=== PATIENT | female | born 1955 | race Caucasian/White ===

== ENCOUNTER 2017-02-27 14:58 | Observation (INO) | payer BC ==
[2017-02-27] MEDS ORDERED: Albuterol/Ipratropium 3.0-0.5 MG/3 ML Neb Soln NEB ONE ×2 (15:16→16:20)
[2017-02-27] MEDS ORDERED: Sodium Chloride 0.9% 1,000 ML IV ONE (15:36)
[2017-02-27] MEDS ORDERED: methylPREDNISolone Sodium Succinate 125 MG/2 ML SDV IVPUSH ONE (15:37)
--- NOTE | 2017-02-27 16:27 | CR ---
EXAMINATION: Two-view chest (PA and Lateral views). HISTORY: Rule out pneumonia. FINDINGS: The trachea is midline. The cardiomediastinal silhouette is within normal limits. There is mild left basilar atelectasis and/or infiltrate. There is mild hyperinflation. Osseous structures appear unremarkable. IMPRESSION: Mild left basilar atelectasis and/or infiltrate.
--- NOTE | 2017-02-27 16:45 | EDM.PDOC ---
ED HISTORY OF PRESENT ILLNESS - General Chief Complaint: Respiratory Problem Stated Complaint: SHORTNESS OF BREATH Time Seen by Provider: 02/27/17 15:15 Source of Information: Reports: Patient, Family History Limitations: Reports: No limitations - History of Present Illness INITIAL COMMENTS - FREE TEXT/NARRATIVE: History of present illness: [61-year-old female presenting with acute onset of difficulty breathing. Patient indicates that she's had a cough that she couldn't resolve and subsequently took some codeine cough since she had at home. Patient as she has an allergy to codeine but felt a little bit would not matter] Review of systems: As per history of present illness and below otherwise all systems reviewed and negative. Past medical history: As per history of present illness and as reviewed below otherwise noncontributory. Surgical history: As per history of present illness and as reviewed below otherwise noncontributory. Social history: No reported history of drug or alcohol abuse. Family history: As per history of present illness and as reviewed below otherwise noncontributory. Physical exam: HEENT: Atraumatic, normocephalic, pupils reactive, negative for conjunctival pallor or scleral icterus, mucous membranes moist, throat clear, neck supple, nontender, trachea midline. Lungs: Bilateral lungs with significant decreased airflow noted O2 sats in the low 90s on room-air but with any talking or coughing drop below 90%, chest nontender. Heart: S1S2, regular, negative for clicks, rubs, or JVD. Abdomen: Soft, nondistended, nontender. Negative for masses or hepatosplenomegaly. Negative for costovertebral tenderness. Pelvis: Stable nontender. Genitourinary: Deferred. Rectal: Deferred. Extremities: Atraumatic, negative for cords or calf pain. Neurovascular unremarkable. Neuro: Awake, alert, oriented. Cranial nerves II through XII unremarkable. Cerebellum unremarkable. Motor and sensory unremarkable throughout. Exam nonfocal. After numerous continuous Med-Neb's patients air way appeared clear with good air movement yet her saturations continued to drop below 90 percentile 2 L of oxygen placed via nasal cannula with O2 sats reaching 94-96%. Patient is very nervous and has a protracted history of "numerous allergies" patient admitted she wasn't really clear about what has happened but has very stories about numerous bad outcomes from any medical intervention. Patient initially did not want to be admitted felt that she was the "worst patient in the hospital ever" but he ignores that she did need O2 support to maintain her saturations above 90% and was willing to be admitted. Diagnostics: [Chest x-ray] Therapeutics: [Continuous Med-Neb's IV Solu-Medrol] Impression: [Infiltrate versus atelectasis] Plan: [Mid to office] Definitive disposition and diagnosis as appropriate pending reevaluation and review of above. - Related Data Allergies/ADRs: Allergies Allergy/AdvReac Type Severity Reaction Status Date / Time codeine Allergy Nausea and Verified 02/27/17 15:09 Vomiting epinephrine Allergy Other Verified 02/27/17 15:09 hydrocortisone Allergy Cannot Verified 02/27/17 15:09 [From Cortizone-10] Remember levofloxacin [From Levaquin] Allergy Leg Cramps Verified 02/27/17 15:09 metoprolol Allergy Chest Pain Verified 02/27/17 15:09 morphine Allergy Nausea Verified 02/27/17 15:09 Penicillins Allergy Anaphylactic Verified 02/27/17 15:09 Shock sulfamethoxazole Allergy Cannot Verified 02/27/17 15:09 Remember trimethoprim [From Bactrim] Allergy Cannot Verified 02/27/17 15:09 Remember metal Allergy Rash Uncoded 08/24/15 13:37 Home Meds: Home Meds Losartan/Hydrochlorothiazide [Losartan-HCTZ 100-25 MG] 1 tab PO DAILY 08/24/15 [ History] Past Medical History Cardiovascular History: Reports: Hypertension Musculoskeletal History: Reports: Gout, Other (see below) Other Musculoskeletal History: chronic pain - Infectious Disease History Infectious Disease History: Reports: Chicken pox, Measles, Mumps Social & Family History - Family History Family Medical History: Noncontributory - Tobacco Use Smoking Status *Q: Never Smoker Second Hand Smoke Exposure: Yes - Recreational Drug Use Recreational Drug Use: No ED ROS GENERAL - Review of Systems Review Of Systems: See Below (History of present illness) ED EXAM, GENERAL - Physical Exam Exam: See Below (History of present illness) Course - Vital Signs Last Recorded V/S: Last Vital Signs Temp 37.1 C 02/27/17 17:23 Pulse 97 02/27/17 17:23 Resp 18 02/27/17 17:23 BP 139/78 02/27/17 17:23 Pulse Ox 98 02/27/17 17:23 - Orders/Labs/Meds Orders: Active Orders 24 hr Category Date Time Status RT Aerosol Therapy [RC] ASDIRECTED Care 02/27/17 15:16 Active RT Aerosol Therapy [RC] ASDIRECTED Care 02/27/17 16:20 Active CMP [COMPREHENSIVE METABOLIC PN,CMP] [CHEM] Stat Lab 02/27/17 17:11 Received Sodium Chloride 0.9% [Normal Saline] 1,000 ml Med 02/27/17 15:36 Active IV STAT Medication Orders Sodium Chloride (Normal Saline) 1,000 mls @ 100 mls/hr IV STAT ONE Stop: 02/28/17 01:35 Last Admin: 02/27/17 15:52 Dose: 100 mls/hr Meds: Medications Generic Name Dose Route Start Last Admin Trade Name Freq PRN Reason Stop Dose Admin Sodium Chloride 1,000 mls @ 100 mls/hr 02/27/17 15:36 02/27/17 15:52 Normal Saline IV 02/28/17 01:35 100 mls/hr STAT ONE Administration Discontinued Medications Generic Name Dose Route Start Last Admin Trade Name Freq PRN Reason Stop Dose Admin Albuterol/Ipratropium 3 ml 02/27/17 15:16 02/27/17 15:26 Duoneb 3.0-0.5 Mg/3 Ml NEB 02/27/17 15:17 3 ml ONETIME ONE Administration Albuterol/Ipratropium 3 ml 02/27/17 16:20 02/27/17 16:29 Duoneb 3.0-0.5 Mg/3 Ml NEB 02/27/17 16:21 3 ml ONETIME ONE Administration Methylprednisolone Sodium Succinate 125 mg 02/27/17 15:37 02/27/17 15:52 Solu-Medrol IVPUSH 02/27/17 15:38 125 mg ONETIME ONE Administration Departure - Departure Time of Disposition: 17:32 Disposition: Refer to Observation Condition: good Clinical Impression: Dyspnea Qualifiers: Dyspnea type: unspecified Qualified Code(s): R06.00 - Dyspnea, unspecified - My Orders Last 24 Hours: My Active Orders 02/27/17 15:16 RT Aerosol Therapy [RC] ASDIRECTED 02/27/17 15:36 Sodium Chloride 0.9% [Normal Saline] 1,000 ml IV STAT 02/27/17 16:20 RT Aerosol Therapy [RC] ASDIRECTED 02/27/17 17:11 CMP [COMPREHENSIVE METABOLIC PN,CMP] [CHEM] Stat - Assessment/Plan Last 24 Hours: My Active Orders 02/27/17 15:16 RT Aerosol Therapy [RC] ASDIRECTED 02/27/17 15:36 Sodium Chloride 0.9% [Normal Saline] 1,000 ml IV STAT 02/27/17 16:20 RT Aerosol Therapy [RC] ASDIRECTED 02/27/17 17:11 CMP [COMPREHENSIVE METABOLIC PN,CMP] [CHEM] Stat
[2017-02-27] MEDS ORDERED: Ondansetron 4 MG Tab.DIS PO PRN (17:22)
[2017-02-27] MEDS ORDERED: Acetaminophen 325 MG Tab PO PRN (17:22)
--- NOTE | 2017-02-27 17:46 | PCM.HP ---
H&P History of Present Illness - General Date of Service: 02/27/17 Admit Problem/Dx: Admission Diagnosis/Problem Admission Diagnosis/Problem Dyspnea Source of Information: Patient History Limitations: Reports: No limitations - History of Present Illness Initial Comments - Free Text/Narative: 61 year old female that is being admitted with shortness of breath. Patient developed a cough 1 week ago and today the cough became worse and she experienced worsening shortness of breath. She has not sought treatment until presenting to the ER today. Her cough is non-productive. She does not smoke but her has smoked in the house for the past 25 years. She has no diagnosis of asthma or COPD. She does not require O2 at home. She has been tried on inhalers in the past but states that she is "scared to use them" and of the side effects that may come with their use. She also endorses weakness, decreased appetite but denies any N/V/C/D or abdominal pain. She has had sinus congestion over the past week but attributes this to allergies. She does not take anything for her allergies. She denies any peripheral edema. Her son, who is with her today, notes that she has a difficult time breathing when lying flat. Patient denies this. Patient does not have a cardiac history. She does take Losartan-HCTZ for blood pressure control. She did not receive a flu shot this year. ER COURSE: Patient received Solu-medrol IV and duonebs treatment. Her O2 was mid 80's on RA. She is currently on supplemental O2 via NC. She has been afebrile in the ER. She has been intermittently tachycardic and tachypneinc in the ER. CXR shows mild left basilar atelectasis/infiltrate - Related Data Allergies/Adverse Reactions: Allergies Allergy/AdvReac Type Severity Reaction Status Date / Time codeine Allergy Nausea and Verified 02/27/17 15:09 Vomiting epinephrine Allergy Other Verified 02/27/17 15:09 hydrocortisone Allergy Cannot Verified 02/27/17 15:09 [From Cortizone-10] Remember levofloxacin [From Levaquin] Allergy Leg Cramps Verified 02/27/17 15:09 metoprolol Allergy Chest Pain Verified 02/27/17 15:09 morphine Allergy Nausea Verified 02/27/17 15:09 Penicillins Allergy Anaphylactic Verified 02/27/17 15:09 Shock sulfamethoxazole Allergy Cannot Verified 02/27/17 15:09 Remember trimethoprim [From Bactrim] Allergy Cannot Verified 02/27/17 15:09 Remember metal Allergy Rash Uncoded 08/24/15 13:37 Home Medications: Home Meds Losartan/Hydrochlorothiazide [Losartan-HCTZ 100-25 MG] 1 tab PO DAILY 08/24/15 [ History] Past Medical History Cardiovascular History: Reports: Hypertension Musculoskeletal History: Reports: Gout, Other (see below) Other Musculoskeletal History: chronic pain - Infectious Disease History Infectious Disease History: Reports: Chicken pox, Measles, Mumps Social & Family History - Family History Family Medical History: Noncontributory - Tobacco Use Smoking Status *Q: Never Smoker Second Hand Smoke Exposure: Yes - Recreational Drug Use Recreational Drug Use: No H&P Review of Systems - Review of Systems: Review Of Systems: See Below General: Reports: weakness, fatigue, decreased appetite HEENT: Reports: headaches, sinus congestion Pulmonary: Reports: Shortness of Breath, Cough. Denies: Hemoptysis Cardiovascular: Reports: dyspnea on exertion, orthopnea Gastrointestinal: Reports: Decreased appetite Genitourinary: Reports: no symptoms Musculoskeletal: Reports: no symptoms Skin: Reports: no symptoms Psychiatric: Reports: no symptoms Neurological: Reports: No Symptoms Hematologic/Lymphatic: Reports: no symptoms Immunologic: Reports: no symptoms Exam - Exam Exam: See Below - Vital Signs Vital Signs: Last Vital Signs Temp 98.8 F 02/27/17 17:23 Pulse 97 02/27/17 17:23 Resp 18 02/27/17 17:23 BP 139/78 02/27/17 17:23 Pulse Ox 98 02/27/17 17:23 Weight: 260 lb - Exam General: alert, oriented, cooperative HEENT: Hearing intact, Mucosa moist & pink, Nares patent, Normal nasal septum, TMs clear, Other (white exudate noted on the left tonsil) Neck: supple, trachea midline, 2 Lungs: Clear to auscultation, Normal respiratory effort, Decreased breath sounds (diffuse and bilateral) Cardiovascular: regular rate, regular rhythm Abdomen: normal bowel sounds, soft Extremities: normal inspection. No: calf tenderness, edema Peripheral Pulses: 2+: radial (L), radial (R) Skin: warm, dry, intact Neuro Extensive - Mental Status: alert, oriented x3, normal mood/affect, normal cognition Psychiatric: alert, anxious - Patient Data Lab Results last 24 hrs: Laboratory Results - last 24 hr 02/27/17 Range/Units 17:11 WBC 3.08 L (4.0-11.0) K/uL RBC 4.35 (4.30-5.90) M/uL Hgb 12.7 (12.0-16.0) g/dL Hct 38.5 (36.0-46.0) % MCV 88.5 (80.0-98.0) fL MCH 29.2 (27.0-32.0) pg MCHC 33.0 (31.0-37.0) g/dL RDW Std Deviation 46.0 (28.0-62.0) fl RDW Coeff of Iesha 14 (11.0-15.0) % Plt Count 162 (150-400) K/uL MPV 9.60 (7.40-12.00) fL Neut % (Auto) 67.3 (48.0-80.0) % Lymph % (Auto) 22.7 (16.0-40.0) % [place] % (Auto) 9.7 (0.0-15.0) % Eos % (Auto) 0.0 (0.0-7.0) % Baso % (Auto) 0.3 (0.0-1.5) % Neut # (Auto) 2.1 (1.4-5.7) K/uL Lymph # (Auto) 0.7 (0.6-2.4) K/uL [place] # (Auto) 0.3 (0.0-0.8) K/uL Eos # (Auto) 0.0 (0.0-0.7) K/uL Baso # (Auto) 0.0 (0.0-0.1) K/uL Nucleated RBC % 0.0 /100WBC Nucleated RBCs # 0 K/uL Result Diagrams: 02/27/17 17:11 02/27/17 17:11 *Q Meaningful Use (ADM) - VTE *Q VTE Criteria *Q: - Stroke *Q Stroke Criteria *Q: - AMI *Q AMI Criteria *Q: - Problem List (1) Dyspnea SNOMED Code(s): 942077367 ICD Code: R06.00 - DYSPNEA, UNSPECIFIED Status: Acute Current Visit: Yes Qualifiers: Dyspnea type: unspecified Qualified Code(s): R06.00 - Dyspnea, unspecified Problem List Initiated/Reviewed/Updated: Yes Orders Last 24hrs: Active Orders 24 hr Category Date Time Status Patient Status [ADT] Routine ADT 02/27/17 17:24 Ordered Patient Status [ADT] Stat ADT 02/27/17 17:31 Active Antiembolic Devices [RC] PER UNIT ROUTINE Care 02/27/17 17:28 Ordered Cardiac Monitoring [RC] INTERMITTENT Care 02/27/17 17:26 Ordered Height and Weight [RC] DAILY Care 02/27/17 17:22 Ordered Intake and Output [RC] QSHIFT Care 02/27/17 17:26 Ordered Notify Provider Vital Signs [RC] ASDIRECTED Care 02/27/17 17:26 Ordered Oxygen Therapy [RC] PRN Care 02/27/17 17:24 Ordered Pulse Oximetry [RC] PRN Care 02/27/17 17:26 Ordered RT Aerosol Therapy [RC] ASDIRECTED Care 02/27/17 17:28 Ordered Up With Assistance [RC] ASDIRECTED Care 02/27/17 17:22 Ordered VTE/DVT Education [RC] PER UNIT ROUTINE Care 02/27/17 17:24 Ordered Vital Signs [RC] Q4H Care 02/27/17 17:24 Ordered PT Evaluation and Treatment [CONS] Routine Cons 02/27/17 17:22 Ordered Regular Diet [DIET] Diet 02/27/17 Breakfast Ordered BASIC METABOLIC PANEL,BMP [CHEM] AM Lab 02/28/17 05:11 Ordered CBC WITH AUTO DIFF [HEME] AM Lab 02/28/17 05:11 Ordered Acetaminophen [Tylenol] Med 02/27/17 17:22 Ordered 650 mg PO Q4H PRN Albuterol/Ipratropium [DuoNeb 3.0-0.5 MG/3 ML] Med 02/27/17 18:00 Ordered 3 ml NEB Q4HRRT Enoxaparin [Lovenox] Med 02/27/17 17:30 Ordered 40 mg SUBCUT DAILY Losartan/Hydrochlorothiazide [Losartan-HCTZ 100-25 MG] Med 02/28/17 09:00 Ordered 1 tab PO DAILY Ondansetron [Zofran ODT] Med 02/27/17 17:22 Ordered 4 mg PO Q4H PRN methylPREDNISolone Sod Succ [Solu-MEDROL] Med 02/27/17 21:00 Ordered 125 mg IVPUSH Q6H Sequential Compression Device [OM.PC] Per Unit Routine Oth 02/27/17 17:26 Ordered Resuscitation Status Routine Resus Stat 02/27/17 17:22 Ordered Medication Orders Acetaminophen (Tylenol) 650 mg PO Q4H PRN PRN Reason: Pain (Mild 1-3)/fever Albuterol/Ipratropium (Duoneb 3.0-0.5 Mg/3 Ml) 3 ml NEB Q4HRRT [facility] Enoxaparin Sodium (Lovenox) 40 mg SUBCUT DAILY [facility] HCTZ/Losartan Potassium (Hyzaar 50-12.5 Mg) 2 tab PO DAILY [facility] Sodium Chloride (Normal Saline) 1,000 mls @ 100 mls/hr IV STAT ONE Stop: 02/28/17 01:35 Last Admin: 02/27/17 15:52 Dose: 100 mls/hr Methylprednisolone Sodium Succinate (Solu-Medrol) 125 mg IVPUSH Q6H [facility] Ondansetron HCl (Zofran Odt) 4 mg PO Q4H PRN PRN Reason: nausea, able to take PO Assessment/Plan Comment:: 61 year old female admitted with dyspnea 1. Dyspnea: -pneumonia vs asthma exacerbation vs COPD exacerbation. -CXR shows mild left basilar atelectasis/infiltrate. WBC is low at 3 and differential is normal. -Will start solumedrol 125mg IV q6hrs, duonebs BETHANY q4hrs -start Rocephin 1gm IV daily and Azithromycin 500mg IV daily. -Supplemental O2 as needed -will swab for flu 2. Weakness: -PT ordered DVT Prophylaxis: Lovenox 40mg daily, SCD's
[2017-02-27 17:53] LABS: CHLORIDE,CL 94 mmol/L (98-110); SODIUM,NA 131 mmol/L (136-146)
[2017-02-27] MEDS ORDERED: Azithromycin 500 MG in Sodium Chloride 0.9% 250 ML IV SCH (18:00)
[2017-02-27] MEDS: Albuterol/Ipratropium 3.0-0.5 MG/3 ML Neb Soln NEB SCH ×2 (18:35→21:15)
[2017-02-27] MEDS: Enoxaparin 40 MG/0.4 ML Syringe SUBCUT SCH ×2 (18:46→18:56)
[2017-02-27] MEDS ORDERED: cefTRIAXone 1 GM in Premix Bag 1 BAG IV SCH (19:00)
[2017-02-27] MEDS ORDERED: Potassium Chloride 20 MEQ Tab.ER PO ONE (19:56)
[2017-02-27] MEDS ORDERED: Sodium Chloride 0.9% with KCl 1,000 ML IV SCH (20:15)
[2017-02-27] MEDS: Oseltamivir 75 MG Cap PO SCH (20:36)
[2017-02-27] MEDS: methylPREDNISolone Sodium Succinate 125 MG/2 ML SDV IVPUSH SCH (20:38)
[2017-02-28] MEDS: Albuterol/Ipratropium 3.0-0.5 MG/3 ML Neb Soln NEB SCH ×3 (02:11→10:08)
[2017-02-28] MEDS: methylPREDNISolone Sodium Succinate 125 MG/2 ML SDV IVPUSH SCH ×2 (02:13→08:17)
[2017-02-28 05:26] LABS: CHLORIDE,CL 94 mmol/L (98-110); SODIUM,NA 131 mmol/L (136-146)
[2017-02-28 05:32] VITALS: BP 122/56
[2017-02-28] MEDS: Oseltamivir 75 MG Cap PO SCH (08:19)
[2017-02-28] MEDS ORDERED: Hydrochlorothiazide/Losartan 12.5-50 mg Tab PO SCH (09:00)
[2017-02-28] MEDS: Enoxaparin 40 MG/0.4 ML Syringe SUBCUT SCH (10:48)
--- NOTE | 2017-03-03 15:56 | PCM.DCSUM1 ---
Discharge Summary - Hospital Course Free Text/Narrative:: Admission diagnosis: 1. shortness of breath Discharge diagnosis: 1. COPD exacerbation 2. Left sided pneumonia 3. Influenza B positive 61 year old female admitted with worsening shortness of breath. CXR showed a mild left basilar atelectasis/infiltrate. She was requiring 2L Nasal cannula to maintain O2 saturation >90%. She was started IV antibiotics (Rocephin, Azithromycin) for pneumonia. She was also started on solumedrol IV and scheduled duonebs for a possible COPD exacerbation. She was swabbed for flu and was influenza B positive. She was started on Tamiflu. With the various treatments listed above, the patients respiratory status improved and she was not requiring supplemental O2 at the time of discharge. WBC was low during admission. She was afebrile, tolerating oral intake and voiding appropriately at time of discharge. - Discharge Data Discharge Date: 02/28/17 Discharge Disposition: Home, Self-Care 01 Condition: Good - Discharge Diagnosis/Problem(s) (1) Dyspnea SNOMED Code(s): 736316716 ICD Code: R06.00 - DYSPNEA, UNSPECIFIED Status: Acute Qualifiers: Dyspnea type: unspecified Qualified Code(s): R06.00 - Dyspnea, unspecified (2) Influenza SNOMED Code(s): 8482209 ICD Code: J11.1 - FLU DUE TO UNIDENTIFIED INFLUENZA VIRUS W OTH RESP MANIFEST Status: Acute - Patient Instructions Diet: Usual Diet as Tolerated Activity: As Tolerated Driving: May Drive Today Showering/Bathing: May Shower Notify Provider of: Fever, Increased Pain, Nausea and/or Vomiting - Discharge Plan Prescriptions/Med Rec: Albuterol [IJD: Ventolin HFA] 1 puff INH .TWICE DAILY #18 gm Azithromycin [IJD: Azithromycin] 250 mg PO ASDIRECTED #6 tab Oseltamivir Phosphate [IJD: Tamiflu] 75 mg PO BID #8 capsule Prednisone [IJD: Prednisone] 10 mg PO ASDIRECTED #28 tab Home Medications: Home Meds Losartan/Hydrochlorothiazide [Losartan-HCTZ 100-25 MG] 1 tab PO DAILY 08/24/15 [ History] Albuterol [IJD: Ventolin HFA] 1 puff INH .TWICE DAILY #18 gm 02/28/17 [Rx] Azithromycin [IJD: Azithromycin] 250 mg PO ASDIRECTED #6 tab 02/28/17 [Rx] Oseltamivir Phosphate [IJD: Tamiflu] 75 mg PO BID #8 capsule 02/28/17 [Rx] Prednisone [IJD: Prednisone] 10 mg PO ASDIRECTED #28 tab 02/28/17 [Rx] Patient Handouts: Shortness of Breath, [id number], Influenza, Adult, Easy-to- Read, Albuterol inhalation aerosol, Oseltamivir capsules, Azithromycin tablets, Prednisone tablets Referrals: Jerrod Solares MD [Primary Care Provider] - 03/07/17 2:15 pm - Discharge Summary/Plan Comment DC Time >30 min.: No Discharge Summary/Plan Comment: Admission diagnosis: 1. shortness of breath Discharge diagnosis: 1. COPD exacerbation 2. Left sided pneumonia 3. Influenza B positive 61 year old female admitted with worsening shortness of breath. CXR showed a mild left basilar atelectasis/infiltrate. She was requiring 2L Nasal cannula to maintain O2 saturation >90%. She was started IV antibiotics (Rocephin, Azithromycin) for pneumonia. She was also started on solumedrol IV and scheduled duonebs for a possible COPD exacerbation. She was swabbed for flu and was influenza B positive. She was started on Tamiflu. With the various treatments listed above, the patients respiratory status improved and she was not requiring supplemental O2 at the time of discharge. WBC was low during admission. She was afebrile, tolerating oral intake and voiding appropriately at time of discharge. Discharge plan: 1. Prescribed Prednisone taper. Patient states that she would not use prescription but it was prescribed anyway. 2. Prescribed albuterol inhaler. 3. Prescribed a Z-pack for pneumonia 4. Prescribed Tamiflu 75mg BID for 4 days. 5. Will f/u with Dr. Jerrod Solares on 03/07/17. - Patient Data Vitals - Most Recent: Last Vital Signs Temp 97.7 F 02/28/17 08:15 Pulse 87 02/28/17 08:15 Resp 22 H 02/28/17 08:15 BP 122/56 L 02/28/17 05:00 Pulse Ox 92 L 02/28/17 08:15 Weight - Most Recent: 260 lb Med Orders - Current: Current Medications Discontinued Medications Acetaminophen (Tylenol) 650 mg PO Q4H PRN PRN Reason: Pain (Mild 1-3)/fever Albuterol/Ipratropium (Duoneb 3.0-0.5 Mg/3 Ml) 3 ml NEB ONETIME ONE Stop: 02/27/17 15:17 Last Admin: 02/27/17 15:26 Dose: 3 ml Albuterol/Ipratropium (Duoneb 3.0-0.5 Mg/3 Ml) 3 ml NEB ONETIME ONE Stop: 02/27/17 16:21 Last Admin: 02/27/17 16:29 Dose: 3 ml Albuterol/Ipratropium (Duoneb 3.0-0.5 Mg/3 Ml) 3 ml NEB Q4HRRT [facility] Last Admin: 02/28/17 10:08 Dose: Not Given Enoxaparin Sodium (Lovenox) 40 mg SUBCUT DAILY [facility] Last Admin: 02/28/17 10:48 Dose: Not Given HCTZ/Losartan Potassium (Hyzaar 50-12.5 Mg) 2 tab PO DAILY [facility] Last Admin: 02/28/17 08:17 Dose: 2 tab Sodium Chloride (Normal Saline) 1,000 mls @ 100 mls/hr IV STAT ONE Stop: 02/28/17 01:35 Last Admin: 02/27/17 15:52 Dose: 100 mls/hr Azithromycin 500 mg/ Sodium (Chloride) 250 mls @ 250 mls/hr IV Q24H [facility] Last Infusion: 02/27/17 20:06 Dose: Infused Ceftriaxone Sodium/Dextrose 1 (gm/ Premix) 50 mls @ 100 mls/hr IV Q24H [facility] Last Infusion: 02/27/17 20:30 Dose: Infused Potassium Chloride/Sodium Chloride (Normal Saline With 40 Meq Kcl) 1,000 mls @ 125 mls/hr IV ASDIRECTED [facility] Stop: 02/28/17 04:14 Last Infusion: 02/28/17 05:50 Dose: Infused Methylprednisolone Sodium Succinate (Solu-Medrol) 125 mg IVPUSH ONETIME ONE Stop: 02/27/17 15:38 Last Admin: 02/27/17 15:52 Dose: 125 mg Methylprednisolone Sodium Succinate (Solu-Medrol) 125 mg IVPUSH Q6H [facility] Last Admin: 02/28/17 08:17 Dose: 125 mg Ondansetron HCl (Zofran Odt) 4 mg PO Q4H PRN PRN Reason: nausea, able to take PO Last Admin: 02/28/17 02:11 Dose: 4 mg Oseltamivir Phosphate (Tamiflu) 75 mg PO BID [facility] Last Admin: 02/28/17 08:19 Dose: 75 mg Potassium Chloride (Klor-Con M20) 40 meq PO ONETIME ONE Stop: 02/27/17 19:57 Last Admin: 02/27/17 20:33 Dose: 40 meq *Q Meaningful Use (DIS) - VTE *Q VTE Criteria *Q: - Stroke *Q Stroke Criteria *Q: - AMI *Q AMI Criteria *Q:
== END 2017-02-28 12:10 | disposition home or self-care (01) ==
LOC: MW.ED 14:58 → MW.MS 16:58 → UNDOADMOB 16:58 → MW.MS 17:24
PROVIDERS: ADMIT Internal Medicine; ATTEND Internal Medicine
DX: J44.0 Chronic obstructive pulmonary disease with (acute) lower respiratory infection (principal); J18.9 Pneumonia, unspecified organism; J44.1 Chronic obstructive pulmonary disease with (acute) exacerbation; J11.1 Influenza due to unidentified influenza virus with other respiratory manifestations; R53.1 Weakness; Z88.8 Allergy status to other drugs, medicaments and biological substances; Z88.0 Allergy status to penicillin; Z88.2 Allergy status to sulfonamides; Z79.899 Other long term (current) drug therapy; I10 Essential (primary) hypertension; M10.9 Gout, unspecified; G89.29 Other chronic pain
CPT/HCPCS: 36415; 71020; 80048; 80053; 85025; 87804; 94640; 94664; 96361; 96365; 96367; 96375; 96376; 97161; 99285; A9270; G0378; J0456; J0696; J2930; J3480; J7040; J7050; 96374; J1650

== ENCOUNTER 2017-03-04 10:12 | Emergency (ER) | payer BC ==
[2017-03-04] MEDS ORDERED: Sodium Chloride 0.9% 10 ML Syringe FLUSH PRN (10:31)
[2017-03-04] MEDS ORDERED: Sodium Chloride 0.9% 2.5 ML Syringe FLUSH PRN (10:31)
[2017-03-04] MEDS ORDERED: cloNIDine 0.1 MG Tab PO ONE (10:34)
--- NOTE | 2017-03-04 10:46 | EDM.PDOC ---
ED HISTORY OF PRESENT ILLNESS - General Chief Complaint: Respiratory Problem Stated Complaint: TROUBLE BREATHING Time Seen by Provider: 03/04/17 10:13 Source of Information: Reports: Patient History Limitations: Reports: No limitations - History of Present Illness INITIAL COMMENTS - FREE TEXT/NARRATIVE: History of present illness: [] Patient was discharged last week for shortness of breath and diagnosed with influenza P. and pneumonia. She was discharged stable with Ventolin inhaler, prednisone, Z-Edin and Tamiflu. She did well over the weekend however he has had some difficulty swallowing her medications with burning in her chest and small amounts of bilious emesis. Patient denies any fevers, chills or diarrhea. He continues to have shortness of breath, chest pain and she does not use her meds are probably. Review of systems: As per history of present illness and below otherwise all systems reviewed and negative. Past medical history: As per history of present illness and as reviewed below otherwise noncontributory. Surgical history: As per history of present illness and as reviewed below otherwise noncontributory. Social history: No reported history of drug or alcohol abuse. Family history: As per history of present illness and as reviewed below otherwise noncontributory. Physical exam: General: Well developed, well nourished in NAD HEENT: Atraumatic, normocephalic, pupils reactive, negative for conjunctival pallor or scleral icterus, mucous membranes moist, throat clear, neck supple, nontender, trachea midline. Lungs: Clear to auscultation, breath sounds equal bilaterally, chest nontender. No accessory muscle use no wheezing or rhonchi noted Heart: S1S2, regular, negative for clicks, rubs, or JVD. Abdomen: Soft, nondistended, nontender. Negative for masses or hepatosplenomegaly. Negative for costovertebral tenderness. Pelvis: Stable nontender. Genitourinary: Deferred. Rectal: Deferred. Extremities: Atraumatic, negative for cords or calf pain. Neurovascular unremarkable. Neuro: Awake, alert, oriented. Cranial nerves II through XII unremarkable. Cerebellum unremarkable. Motor and sensory unremarkable throughout. Exam nonfocal. Diagnostics: [] Labs and chest x-ray repeated, I also checked a d-dimer in case she has a PE. The d-dimer was elevated however patient refused any further testing to rule out a PE. Therapeutics: [] Continue current medication. Stop Tamiflu if desired due to bad side effects. Impression: [] Shortness of breath status post pneumonia and influenza B. last week Plan: [] Followup PMD or symptoms worsen Definitive disposition and diagnosis as appropriate pending reevaluation and review of above. - Related Data Allergies/ADRs: Allergies Allergy/AdvReac Type Severity Reaction Status Date / Time codeine Allergy Nausea and Verified 03/04/17 10:17 Vomiting epinephrine Allergy Other Verified 03/04/17 10:17 hydrocortisone Allergy Cannot Verified 03/04/17 10:17 [From Cortizone-10] Remember levofloxacin [From Levaquin] Allergy Leg Cramps Verified 03/04/17 10:17 metoprolol Allergy Chest Pain Verified 03/04/17 10:17 morphine Allergy Nausea Verified 03/04/17 10:17 Penicillins Allergy Anaphylactic Verified 03/04/17 10:17 Shock sulfamethoxazole Allergy Cannot Verified 03/04/17 10:17 Remember trimethoprim [From Bactrim] Allergy Cannot Verified 03/04/17 10:17 Remember metal Allergy Rash Uncoded 03/04/17 10:17 Home Meds: Home Meds Losartan/Hydrochlorothiazide [Losartan-HCTZ 100-25 MG] 1 tab PO DAILY 08/24/15 [ History] Azithromycin [IJD: Azithromycin] 250 mg PO ASDIRECTED #6 tab 02/28/17 [Rx] Oseltamivir Phosphate [IJD: Tamiflu] 75 mg PO BID #8 capsule 02/28/17 [Rx] Prednisone [IJD: Prednisone] 10 mg PO ASDIRECTED #28 tab 02/28/17 [Rx] Albuterol [IJD: Ventolin HFA] 1 puff INH BID 03/04/17 [History] Past Medical History HEENT History: Reports: Impaired vision Cardiovascular History: Reports: Hypertension Musculoskeletal History: Reports: Gout, Other (see below) Other Musculoskeletal History: chronic pain Psychiatric History: Reports: Anxiety - Infectious Disease History Infectious Disease History: Reports: Chicken pox, Measles, Mumps Social & Family History - Family History Family Medical History: Noncontributory - Tobacco Use Smoking Status *Q: Never Smoker Second Hand Smoke Exposure: Yes - Caffeine Use Caffeine Use: Reports: Coffee, Soda Caffeine Use Comment: 1-2 cups - Recreational Drug Use Recreational Drug Use: No ED ROS GENERAL - Review of Systems Review Of Systems: See Below (See history of present illness) ED EXAM, GENERAL - Physical Exam Exam: See Below (See history of present illness) Course - Vital Signs Last Recorded V/S: Last Vital Signs Temp 36.1 C 03/04/17 10:19 Pulse 87 03/04/17 10:43 Resp 18 03/04/17 10:43 BP 156/95 H 03/04/17 10:50 Pulse Ox 96 03/04/17 10:43 - Orders/Labs/Meds Orders: Active Orders 24 hr Category Date Time Status EKG Documentation Completion [RC] STAT Care 03/04/17 10:36 Active Sodium Chloride 0.9% [Saline Flush] Med 03/04/17 10:31 Active 10 ml FLUSH ASDIRECTED PRN Sodium Chloride 0.9% [Saline Flush] Med 03/04/17 10:31 Active 2.5 ml FLUSH ASDIRECTED PRN Peripheral IV Insertion Adult [OM.PC] Stat Oth 03/04/17 10:31 Ordered Medication Orders Sodium Chloride (Saline Flush) 10 ml FLUSH ASDIRECTED PRN PRN Reason: Keep Vein Open Sodium Chloride (Saline Flush) 2.5 ml FLUSH ASDIRECTED PRN PRN Reason: Keep Vein Open Labs: Laboratory Tests 03/04/17 03/04/17 03/04/17 Range/Units 10:58 10:58 10:58 WBC 8.66 (4.0-11.0) K/uL RBC 4.95 (4.30-5.90) M/uL Hgb 14.4 (12.0-16.0) g/dL Hct 43.0 (36.0-46.0) % MCV 86.9 (80.0-98.0) fL MCH 29.1 (27.0-32.0) pg MCHC 33.5 (31.0-37.0) g/dL RDW Std Deviation 43.0 (28.0-62.0) fl RDW Coeff of Iesha 14 (11.0-15.0) % Plt Count 186 (150-400) K/uL MPV 10.30 (7.40-12.00) fL Neut % (Auto) 71.7 (48.0-80.0) % Lymph % (Auto) 20.1 (16.0-40.0) % [place] % (Auto) 7.9 (0.0-15.0) % Eos % (Auto) 0.1 (0.0-7.0) % Baso % (Auto) 0.2 (0.0-1.5) % Neut # (Auto) 6.2 H (1.4-5.7) K/uL Lymph # (Auto) 1.7 (0.6-2.4) K/uL [place] # (Auto) 0.7 (0.0-0.8) K/uL Eos # (Auto) 0.0 (0.0-0.7) K/uL Baso # (Auto) 0.0 (0.0-0.1) K/uL Nucleated RBC % 0.0 /100WBC Nucleated RBCs # 0 K/uL D-Dimer, Quantitative 0.85 H (0.0-0.52) mg/LFEU Troponin I < 0.10 (0.0-0.29) NG/ML B-Natriuretic Peptide (<100) PG/ML 03/04/17 Range/Units 10:58 WBC (4.0-11.0) K/uL RBC (4.30-5.90) M/uL Hgb (12.0-16.0) g/dL Hct (36.0-46.0) % MCV (80.0-98.0) fL MCH (27.0-32.0) pg MCHC (31.0-37.0) g/dL RDW Std Deviation (28.0-62.0) fl RDW Coeff of Iesha (11.0-15.0) % Plt Count (150-400) K/uL MPV (7.40-12.00) fL Neut % (Auto) (48.0-80.0) % Lymph % (Auto) (16.0-40.0) % [place] % (Auto) (0.0-15.0) % Eos % (Auto) (0.0-7.0) % Baso % (Auto) (0.0-1.5) % Neut # (Auto) (1.4-5.7) K/uL Lymph # (Auto) (0.6-2.4) K/uL [place] # (Auto) (0.0-0.8) K/uL Eos # (Auto) (0.0-0.7) K/uL Baso # (Auto) (0.0-0.1) K/uL Nucleated RBC % /100WBC Nucleated RBCs # K/uL D-Dimer, Quantitative (0.0-0.52) mg/LFEU Troponin I (0.0-0.29) NG/ML B-Natriuretic Peptide 50 (<100) PG/ML Meds: Medications Generic Name Dose Route Start Last Admin Trade Name Freq PRN Reason Stop Dose Admin Sodium Chloride 10 ml 03/04/17 10:31 Saline Flush FLUSH ASDIRECTED PRN Keep Vein Open Sodium Chloride 2.5 ml 03/04/17 10:31 Saline Flush FLUSH ASDIRECTED PRN Keep Vein Open Discontinued Medications Generic Name Dose Route Start Last Admin Trade Name Freq PRN Reason Stop Dose Admin Clonidine HCl 0.2 mg 03/04/17 10:34 03/04/17 10:50 Catapres PO 03/04/17 10:35 Not Given ONETIME ONE Departure - Departure Time of Disposition: 12:08 Disposition: Home, Self-Care 01 Condition: good Clinical Impression: Shortness of breath Forms: ED Department Discharge Additional Instructions: The following information is given to patients seen in the emergency department who are being discharged to home. This information is to outline your options for follow-up care. We provide all patients seen in our emergency department with a follow-up referral. The need for follow-up, as well as the timing and circumstances, are variable depending upon the specifics of your emergency department visit. If you don't have a primary care physician on staff, we will provide you with a referral. We always advise you to contact your personal physician following an emergency department visit to inform them of the circumstance of the visit and for follow-up with them and/or the need for any referrals to a consulting specialist. The emergency department will also refer you to a specialist when appropriate. This referral assures that you have the opportunity for follow-up care with a specialist. All of these measure are taken in an effort to provide you with optimal care, which includes your follow-up. Under all circumstances we always encourage you to contact your private physician who remains a resource for coordinating your care. When calling for follow-up care, please make the office aware that this follow-up is from your recent emergency room visit. If for any reason you are refused follow-up, please contact the [facility] at and asked to speak to the emergency department charge nurse. Continue regular meds as directed stop Tamiflu if desired [facility] [address] [place] [id number] - My Orders Last 24 Hours: My Active Orders 03/04/17 10:31 Sodium Chloride 0.9% [Saline Flush] 10 ml FLUSH ASDIRECTED PRN Sodium Chloride 0.9% [Saline Flush] 2.5 ml FLUSH ASDIRECTED PRN Peripheral IV Insertion Adult [OM.PC] Stat 03/04/17 10:36 EKG Documentation Completion [RC] STAT - Assessment/Plan Last 24 Hours: My Active Orders 03/04/17 10:31 Sodium Chloride 0.9% [Saline Flush] 10 ml FLUSH ASDIRECTED PRN Sodium Chloride 0.9% [Saline Flush] 2.5 ml FLUSH ASDIRECTED PRN Peripheral IV Insertion Adult [OM.PC] Stat 03/04/17 10:36 EKG Documentation Completion [RC] STAT
--- NOTE | 2017-03-04 11:54 | CR ---
EXAMINATION: Two-view chest (PA and Lateral views). HISTORY: Shortness of breath. FINDINGS: Stable left basilar atelectasis and/or infiltrate. A trace pleural effusion is not excluded. There i s possibly slightly increased right basilar infiltrate also noted. Osseous structures appear unremarkable. IMPRESSION: Stable left basilar atelectasis and/or infiltrate. A trace left pleural effusion is not excluded.
[2017-03-04 12:18] VITALS: BP 154/88
== END 2017-03-04 12:17 | disposition home or self-care (01) ==
LOC: MW.ED 10:12
DX: R06.02 Shortness of breath (principal); I10 Essential (primary) hypertension; F41.9 Anxiety disorder, unspecified; Z79.899 Other long term (current) drug therapy; Z88.0 Allergy status to penicillin; Z88.1 Allergy status to other antibiotic agents; Z88.5 Allergy status to narcotic agent; Z88.8 Allergy status to other drugs, medicaments and biological substances; Z91.048 Other nonmedicinal substance allergy status
CPT/HCPCS: 36415; 71020; 71020-26; 83880; 84484; 85025; 85379; 93005; 99283; 99285-25

== ENCOUNTER 2019-04-24 06:35 | Emergency (ER) | payer MEDICARE, BC ==
[2019-04-24] MEDS ORDERED: Sodium Chloride 0.9% 2.5 ML Syringe FLUSH PRN (06:36)
[2019-04-24] MEDS ORDERED: Sodium Chloride 0.9% 10 ML Syringe FLUSH PRN (06:36)
[2019-04-24] MEDS ORDERED: Furosemide 40 MG/4 ML VIAL IVPUSH ONE (06:38)
--- NOTE | 2019-04-24 06:43 | EDM.PDOC ---
ED HPI GENERAL MEDICAL PROBLEM - General Stated Complaint: TROUBLE BREATHING Time Seen by Provider: 04/24/19 06:35 - History of Present Illness INITIAL COMMENTS - FREE TEXT/NARRATIVE: HISTORY AND PHYSICAL: History of present illness: The patient is a 63-year-old female who is says that she has a history of 3 leaky valves and recently underwent bilateral mastectomy on March 30 for breast cancer and is currently awaiting the next step in her cancer treatment and presents with several weeks of gradual onset of shortness of breath which worsened this morning. She says she's also had bilateral lower extremity edema and swelling and has had a persistent cough. According to family she has had a "upper respiratory bug" that she can't seem to shake that she contracted when she was in the hospital getting her surgery. The patient still has bilateral MADHU drains in place and is not sure what the next step in her cancer treatment is. She says she has had no abdominal pain vomiting or fevers and comes in via EMS in extremis. The patient is unaware if she has metastasis or is unable to tell me that. According to the family she does have a history of hypertension but only takes one medication and has not been taking much for her pain management. She has no history of pulmonary disease and the only cardiac disease and that they are aware of is what I told them that the patient informed me of. has a smell of cigarette smoke on his clothing. Review of systems: As per history of present illness and below otherwise all systems reviewed and negative. Past medical history: As per history of present illness and as reviewed below otherwise noncontributory. Surgical history: As per history of present illness and as reviewed below otherwise noncontributory. Social history: No reported history of drug or alcohol abuse. Family history: As per history of present illness and as reviewed below otherwise noncontributory. Physical exam: General: Well-developed well-nourished female who is in extremis but is able to answer questions. She has very exaggerated work of breathing and is pale appearing. Vital signs are noted by me HEENT: Atraumatic, normocephalic, pupils reactive, negative for scleral icterus , but she does have conjunctival pallor, mucous membranes moist, throat clear, neck supple, nontender, trachea midline. Lungs: Really diminished breath sounds throughout all martinez with wheezing rhonchi and rales bilaterally right greater than left, chest nontender. The patient has dressings in place along her bilateral mastectomy scars which look clean and dry and she has Vadim-Freitas drains in place draining serosanguineous fluid and a small amount Heart: S1S2, regular rhythm and tachycardic rate of my evaluation cannot appreciate any murmurs due to the noisy breath sounds and the distant heart sounds. Abdomen: Soft, nondistended, nontender. Negative for masses or hepatosplenomegaly. Abdomen is globular but soft and no rebound or guarding bowel sounds are hypoactive Pelvis: Stable nontender. Genitourinary: Deferred. Rectal: Deferred. Extremities: Atraumatic, negative for cords or calf pain. Neurovascular unremarkable. The patient has gross pitting edema bilaterally to the knee level with pinkish skin changes appreciated but no overt lesions are seen Neuro: Awake, alert, oriented. Cranial nerves II through XII unremarkable. Motor and sensory unremarkable throughout. Exam nonfocal. Diagnostics: Chest x-ray 2 EKG CBC CMP INR troponin BNP lactate culture 2 Therapeutics: IV O2 monitor IV fluids, we will attempt to give her Lasix if pressure will tolerate Nitropaste Rocephin I discussed with the patient her wishes for intubation as the patient is clearly in extremis and she says she would like everything done and the concurs. Initially the wanted the patient to go to [place] which I told him is not possible in light of the weather and her flight team and that we would need to take her to the closest hospital as she is an extremist. The patient clearly is not going to tolerate her work of breathing even though her O2 sats are 95% on 100 nonrebreather. I feel that she needs to be intubated emergently and anesthesia was called. Please see their progress note that she was intubated easily without any distress. 0650: Case was discussed with Dr. Shaun Solares who initially except to the patient for transfer to but now says that region have an ICU bed around event for her. We will ask the aware in [place] she had her surgery and arrange transfer there. Flight team will be notified 0705: [facility] does not have an appropriate bed so [facility] in [place] was contacted and this case was discussed with Dr. Olvera the hand woodworking sander who accepts the patient. He requested that I speak with Dr. Newell the tray drier operator which I did at 7:12 AM. They both agree with my care with Lasix nitro paste and a dose of Rocephin. Flight team is aware of the change to [facility] in [place] and will be here as soon as possible to package and transfer the patient. Hernandez catheter was placed. I did discuss the current vitals of 126/70 and a heart rate of [address] Newell who does not want me to give any medications to slow the heart rate down at this point. is at bedside and is aware of the care plan. 0720: I was notified by nursing that the patient has a temp of 102 and a gram of Tylenol will be given rectally. Nursing will give this information on report Critical care time excluding procedures: 35min Impression: Respiratory distress with respiratory failure, history of breast cancer with bilateral fluid overload; rule out underlying pneumonia/sepsis Definitive disposition and diagnosis as appropriate pending reevaluation and review of above. - Related Data Allergies Allergy/AdvReac Type Severity Reaction Status Date / Time codeine Allergy Nausea and Verified 03/04/17 10:17 Vomiting epinephrine Allergy Other Verified 03/04/17 10:17 hydrocortisone Allergy Cannot Verified 03/04/17 10:17 [From Cortizone-10] Remember levofloxacin [From Levaquin] Allergy Leg Cramps Verified 03/04/17 10:17 metoprolol Allergy Chest Pain Verified 03/04/17 10:17 morphine Allergy Nausea Verified 03/04/17 10:17 Penicillins Allergy Anaphylactic Verified 03/04/17 10:17 Shock sulfamethoxazole Allergy Cannot Verified 03/04/17 10:17 Remember trimethoprim [From Bactrim] Allergy Cannot Verified 03/04/17 10:17 Remember metal Allergy Rash Uncoded 03/04/17 10:17 Home Meds: Home Meds Losartan/Hydrochlorothiazide [Losartan-HCTZ 100-25 MG] 1 tab PO DAILY 08/24/15 [ History] Azithromycin [IJD: Azithromycin] 250 mg PO ASDIRECTED #6 tab 02/28/17 [Rx] Oseltamivir Phosphate [IJD: Tamiflu] 75 mg PO BID #8 capsule 02/28/17 [Rx] Prednisone [IJD: Prednisone] 10 mg PO ASDIRECTED #28 tab 02/28/17 [Rx] Albuterol [IJD: Ventolin HFA] 1 puff INH BID 03/04/17 [History] Past Medical History HEENT History: Reports: Impaired Vision Cardiovascular History: Reports: Hypertension Musculoskeletal History: Reports: Gout, Other (See Below) Other Musculoskeletal History: chronic pain Psychiatric History: Reports: Anxiety - Infectious Disease History Infectious Disease History: Reports: Chicken Pox, Measles, Mumps Social & Family History - Family History Family Medical History: Noncontributory - Caffeine Use Caffeine Use: Reports: Coffee, Soda Caffeine Use Comment: 1-2 cups ED ROS GENERAL - Review of Systems Review Of Systems: ROS reveals no pertinent complaints other than HPI. ED EXAM, GENERAL - Physical Exam Exam: See Below (See dictation) Course - Vital Signs Last Recorded V/S: Last Vital Signs Temp 36.1 C 04/24/19 06:35 Pulse 165 H 04/24/19 06:35 Resp 32 H 04/24/19 06:35 BP 65/38 L 04/24/19 06:35 Pulse Ox 92 L 04/24/19 06:35 - Orders/Labs/Meds Orders: Active Orders 24 hr Category Date Time Status Cardiac Monitoring [RC] . DIRECTED Care 04/24/19 06:36 Active EKG Documentation Completion [RC] STAT Care 04/24/19 06:36 Active Oxygen Therapy, ED [RC] ASDIRECTED Care 04/24/19 06:36 Active Pulse Oximetry [RC] ASDIRECTED Care 04/24/19 06:36 Active RASS Sedation Scale [RC] ASDIRECTED Care 04/24/19 07:15 Active B-TYPE NATRIURETIC PEPTIDE,BNP [CHEM] Stat Lab 04/24/19 Ordered COMPREHENSIVE METABOLIC PN,CMP [CHEM] Stat Lab 04/24/19 Ordered CULTURE BLOOD [BC] Stat Lab 04/24/19 07:17 Ordered CULTURE BLOOD [BC] Stat Lab 04/24/19 07:17 Ordered TROPONIN I [CHEM] Stat Lab 04/24/19 Ordered Nitroglycerin [Nitro-Bid 2%] Med 04/24/19 07:18 Once 0.5 gm TOP ONETIME ONE Propofol [Diprivan 100 ML] 100 ml Med 04/24/19 07:15 Active IV TITRATE Sodium Chloride 0.9% [Normal Saline] 1,000 ml Med 04/24/19 06:45 Active IV ASDIRECTED Sodium Chloride 0.9% [Saline Flush] Med 04/24/19 06:36 Active 10 ml FLUSH ASDIRECTED PRN Sodium Chloride 0.9% [Saline Flush] Med 04/24/19 06:36 Active 2.5 ml FLUSH ASDIRECTED PRN cefTRIAXone [Rocephin in Dextrose,Iso-Osm 2 GM/50 ML] 2 Med 04/24/19 07:02 Active gm Premix Bag 1 bag IV ONETIME Blood Culture x2 Reflex Set [OM.PC] Stat Ot 04/24/19 07:17 Ordered Desired Level of Sedation (RASS) [AST] Click To Edit Ot 04/24/19 07:15 Ordered Saline Lock Insert [OM.PC] Stat Ot 04/24/19 06:36 Ordered Medication Orders Sodium Chloride (Normal Saline) 1,000 mls @ 50 mls/hr IV ASDIRECTED BETHANY Ceftriaxone Sodium/Dextrose 2 (gm/ Premix) 50 mls @ 100 mls/hr IV ONETIME ONE Stop: 04/24/19 07:31 Propofol (Diprivan 100 Ml) 100 mls @ 3.24 mls/hr IV TITRATE BETHANY; Protocol Sodium Chloride (Saline Flush) 10 ml FLUSH ASDIRECTED PRN PRN Reason: Keep Vein Open Sodium Chloride (Saline Flush) 2.5 ml FLUSH ASDIRECTED PRN PRN Reason: Keep Vein Open Labs: Laboratory Tests 04/24/19 04/24/19 04/24/19 Range/Units 06:45 06:45 07:08 WBC 14.38 H (4.0-11.0) K/uL RBC 4.40 (4.30-5.90) M/uL Hgb 11.5 L (12.0-16.0) g/dL Hct 38.9 (36.0-46.0) % MCV 88.4 (80.0-98.0) fL MCH 26.1 L (27.0-32.0) pg MCHC 29.6 L (31.0-37.0) g/dL RDW Std Deviation 51.1 (28.0-62.0) fl RDW Coeff of Iesha 16 H (11.0-15.0) % Plt Count 353 (150-400) K/uL MPV 9.50 (7.40-12.00) fL Neut % (Auto) 85.9 H (48.0-80.0) % Lymph % (Auto) 7.0 L (16.0-40.0) % Harris % (Auto) 6.3 (0.0-15.0) % Eos % (Auto) 0.6 (0.0-7.0) % Baso % (Auto) 0.2 (0.0-1.5) % Neut # (Auto) 12.4 H (1.4-5.7) K/uL Lymph # (Auto) 1.0 (0.6-2.4) K/uL Harris # (Auto) 0.9 H (0.0-0.8) K/uL Eos # (Auto) 0.1 (0.0-0.7) K/uL Baso # (Auto) 0.0 (0.0-0.1) K/uL Nucleated RBC % 0.0 /100WBC Nucleated RBCs # 0 K/uL INR 0.96 Lactate 4.5 H (0.20-2.00) mmol/L Meds: Medications Generic Name Dose Route Start Last Admin Trade Name Freq PRN Reason Stop Dose Admin Sodium Chloride 1,000 mls @ 50 mls/hr 04/24/19 06:45 Normal Saline IV ASDIRECTED BETHANY Ceftriaxone Sodium/Dextrose 2 50 mls @ 100 mls/hr 04/24/19 07:02 gm/ Premix IV 04/24/19 07:31 ONETIME ONE Propofol 100 mls @ 3.24 mls/hr 04/24/19 07:15 Diprivan 100 Ml IV TITRATE BETHANY Protocol 5 MCG/KG/MIN Sodium Chloride 10 ml 04/24/19 06:36 Saline Flush FLUSH ASDIRECTED PRN Keep Vein Open Sodium Chloride 2.5 ml 04/24/19 06:36 Saline Flush FLUSH ASDIRECTED PRN Keep Vein Open Discontinued Medications Generic Name Dose Route Start Last Admin Trade Name Freq PRN Reason Stop Dose Admin Furosemide 40 mg 04/24/19 06:38 Lasix IVPUSH 04/24/19 06:39 NOW ONE Furosemide Confirm 04/24/19 07:03 Lasix Administered 04/24/19 07:04 Dose 40 mg .ROUTE .STK-MED ONE Propofol Confirm 04/24/19 06:58 Diprivan 50 Ml Administered 04/24/19 06:59 Dose 50 mls @ as directed .ROUTE .STK-MED ONE Ceftriaxone Sodium/Dextrose Confirm 04/24/19 07:03 Rocephin In Dextrose,Iso-Osm 2 Gm/50 Ml Administered 04/24/19 07:04 Dose 50 mls @ as directed .ROUTE .STK-MED ONE Propofol Confirm 04/24/19 07:14 Diprivan 100 Ml Administered 04/24/19 07:15 Dose 100 mls @ as directed .ROUTE .STK-MED ONE Departure - Departure Time of Disposition: 07:21 Disposition: DC/Tfer to Acute Hospital 02 Condition: Critical Clinical Impression: Acute respiratory failure Qualifiers: Respiratory failure complication: hypoxia Qualified Code(s): J96.01 - Acute respiratory failure with hypoxia Pneumonia Qualifiers: Pneumonia type: due to unspecified organism Laterality: unspecified laterality Lung location: unspecified part of lung Qualified Code(s): J18.9 - Pneumonia, unspecified organism Fluid overload Qualifiers: Hypervolemia type: unspecified Qualified Code(s): E87.70 - Fluid overload, unspecified - Discharge Information Referrals: Jerrod Solares MD [Primary Care Provider] - - My Orders Last 24 Hours: My Active Orders 04/24/19 B-TYPE NATRIURETIC PEPTIDE,BNP [CHEM] Stat COMPREHENSIVE METABOLIC PN,CMP [CHEM] Stat TROPONIN I [CHEM] Stat 04/24/19 06:36 Cardiac Monitoring [RC] . DIRECTED EKG Documentation Completion [RC] STAT Oxygen Therapy, ED [RC] ASDIRECTED Pulse Oximetry [RC] ASDIRECTED Sodium Chloride 0.9% [Saline Flush] 10 ml FLUSH ASDIRECTED PRN Sodium Chloride 0.9% [Saline Flush] 2.5 ml FLUSH ASDIRECTED PRN Saline Lock Insert [OM.PC] Stat 04/24/19 06:45 Sodium Chloride 0.9% [Normal Saline] 1,000 ml IV ASDIRECTED 04/24/19 07:02 cefTRIAXone [Rocephin in Dextrose,Iso-Osm 2 GM/50 ML] 2 gm Premix Bag 1 bag IV ONETIME 04/24/19 07:15 RASS Sedation Scale [RC] ASDIRECTED Propofol [Diprivan 100 ML] 100 ml IV TITRATE Desired Level of Sedation (RASS) [AST] Click To Edit 04/24/19 07:17 CULTURE BLOOD [BC] Stat CULTURE BLOOD [BC] Stat Blood Culture x2 Reflex Set [OM.PC] Stat 04/24/19 07:18 Nitroglycerin [Nitro-Bid 2%] 0.5 gm TOP ONETIME ONE - Assessment/Plan Last 24 Hours: My Active Orders 04/24/19 B-TYPE NATRIURETIC PEPTIDE,BNP [CHEM] Stat COMPREHENSIVE METABOLIC PN,CMP [CHEM] Stat TROPONIN I [CHEM] Stat 04/24/19 06:36 Cardiac Monitoring [RC] . DIRECTED EKG Documentation Completion [RC] STAT Oxygen Therapy, ED [RC] ASDIRECTED Pulse Oximetry [RC] ASDIRECTED Sodium Chloride 0.9% [Saline Flush] 10 ml FLUSH ASDIRECTED PRN Sodium Chloride 0.9% [Saline Flush] 2.5 ml FLUSH ASDIRECTED PRN Saline Lock Insert [OM.PC] Stat 04/24/19 06:45 Sodium Chloride 0.9% [Normal Saline] 1,000 ml IV ASDIRECTED 04/24/19 07:02 cefTRIAXone [Rocephin in Dextrose,Iso-Osm 2 GM/50 ML] 2 gm Premix Bag 1 bag IV ONETIME 04/24/19 07:15 RASS Sedation Scale [RC] ASDIRECTED Propofol [Diprivan 100 ML] 100 ml IV TITRATE Desired Level of Sedation (RASS) [AST] Click To Edit 04/24/19 07:17 CULTURE BLOOD [BC] Stat CULTURE BLOOD [BC] Stat Blood Culture x2 Reflex Set [OM.PC] Stat 04/24/19 07:18 Nitroglycerin [Nitro-Bid 2%] 0.5 gm TOP ONETIME ONE
[2019-04-24] MEDS ORDERED: Etomidate 2 MG/ML 20 ML SDV IVPUSH ONE (06:45)
[2019-04-24] MEDS ORDERED: Sodium Chloride 0.9% 1,000 ML IV SCH (06:45)
[2019-04-24] MEDS ORDERED: Succinylcholine 200 MG/10 ML MDV IV STA (06:45)
--- NOTE | 2019-04-24 06:58 | CR ---
INDICATION: 1 image. prior sent. shortness of breath. Indication: Shortness of breath. Technique: Chest one view portable. Comparison: 03/04/2017. Findings: Diffuse interstitial and alveolar opacities are present throughout both lungs. Heart size is enlarged. Pulmonary edema is favored. Pneumonia is a less likely consideration. There is no pneumothorax. The central airway is normal. The osseous structures are intact. Paucity of abdominal bowel gas in the upper abdomen. Impression: Cardiomegaly with interstitial pulmonary edema. Dictated by Estrada Montes MD @ 04/24/2019 6:57:05 AM Dictated by: Estrada Montes MD @ 04/24/2019 06:57:10 (Electronically Signed)
[2019-04-24 07:02] VITALS: BP 65/38
[2019-04-24] MEDS ORDERED: cefTRIAXone 2 GM in Premix Bag 1 BAG IV ONE (07:02)
[2019-04-24] MEDS ORDERED: Furosemide 40 MG/4 ML VIAL ONE (07:03)
--- NOTE | 2019-04-24 07:06 | CR ---
INDICATION: prior in system. 1 image. post intubation HISTORY: Post intubation. COMPARISON: 04/24/2019, 0646 hours. TECHNIQUE: Chest one-view portable semi upright. FINDINGS: The patient is intubated. The endotracheal tube tip is 4.5 cm above the susan. Cardiomegaly and pulmonary opacities are unchanged from the recent comparison exam. Pulmonary edema is favored. IMPRESSION: Tip of the ET tube is appropriately positioned above the susan. No pneumothorax. Dictated by Estrada Montes MD @ 04/24/2019 7:05:24 AM Dictated by: Estrada Montes MD @ 04/24/2019 07:05:30 (Electronically Signed)
[2019-04-24 07:16] LABS: CHLORIDE,CL 101 mmol/L (98-107); SODIUM,NA 136 mmol/L (136-145)
[2019-04-24] MEDS ORDERED: Nitroglycerin 2% Oint 1 GM UD Packet TOP ONE (07:18)
[2019-04-24] MEDS ORDERED: Nitroglycerin 2% Oint 1 GM UD Packet ONE (07:18)
[2019-04-24] MEDS ORDERED: Acetaminophen 650 MG Supp RECTAL ONE (07:22)
--- NOTE | 2019-04-24 07:22 | PCM.SN ---
- Free Text/Narrative Note: called from home to intubate 63yo female in obvious respiratory distress. Patient given etomidate 12mg and Succinocholine 100mmg and Rsi atraumatic [id number] , 7.5 ETT placed, etco2 and equal breath sounds noted, secured at 23 by respiratory staff. iv sedation until flight team arrived.
[2019-04-24] MEDS ORDERED: Rocuronium 50 MG/5 ML Vial IVPUSH ONE (08:15)
== END 2019-04-24 08:05 ==
LOC: MW.ED 06:35
DX: J96.01 Acute respiratory failure with hypoxia (principal); J18.9 Pneumonia, unspecified organism; E87.70 Fluid overload, unspecified; F41.9 Anxiety disorder, unspecified; I10 Essential (primary) hypertension; Z88.5 Allergy status to narcotic agent; Z88.0 Allergy status to penicillin; Z88.2 Allergy status to sulfonamides; Z91.09 Other allergy status, other than to drugs and biological substances; Z79.899 Other long term (current) drug therapy
CPT/HCPCS: 36415; 51702; 71045; 80053; 83605; 83880; 84484; 85025; 85610; 87040; 93005; 96361; 96365; 96374; 96375; 99291; 99292; A4217; A9270; J0330; J0696; J1940; J2704; J3490; J7040

== ENCOUNTER 2019-05-13 20:32 | Emergency (ER) | payer MEDICARE, BC ==
[2019-05-13] MEDS ORDERED: Albuterol/Ipratropium 3.0-0.5 MG/3 ML Neb Soln NEB ONE (21:23)
[2019-05-13 21:44] LABS: CHLORIDE,CL 100 mmol/L (98-107); SODIUM,NA 133 mmol/L (136-145)
[2019-05-13] MEDS ORDERED: Furosemide 40 MG/4 ML VIAL IVPUSH ONE (21:45)
--- NOTE | 2019-05-13 22:04 | EDM.PDOC ---
ED HPI GENERAL MEDICAL PROBLEM - General Chief Complaint: Respiratory Problem Stated Complaint: FLUID AROUND HER HEART Time Seen by Provider: 05/13/19 20:37 Source of Information: Reports: Patient History Limitations: Reports: No Limitations - History of Present Illness INITIAL COMMENTS - FREE TEXT/NARRATIVE: HISTORY AND PHYSICAL: History of present illness: Patient is a 63-year-old female who presents to the ED today with concern of retaining fluid despite Lasix therapy for her congestive heart failure. Patient was seen in the ED here on 04/24/19 in acute respiratory distress and was quickly intubated and flown to [facility]. Patient states she was intubated for 7 days while a pleural fluid off of her. Patient states she has a aortic valve which needs replacement and is in congestive heart failure as a result. Patient states she also has a history of breast cancer with a recent double mastectomy just a few weeks ago. While in [place], patient states she had a cardiac catheter done which showed that she did not have any blocked arteries. Patient states that they believe the respiratory with distress was a result of pulmonary overload due to fluid from congestive heart failure. Patient states she had an echo done in several other studies while in [place]. After discharge , patient states she is following a strict congestive heart failure treatment and tracks her weigh himself daily. Patient states she was starting to gain weight and had called the clinic and they had increased her Lasix 2 times over the past week. Patient states she took 60 mg of Lasix today but is still feeling worsening shortness of breath and swelling of her bilateral lower extremities. Patient denies fever, chills, chest pain.. Denies headache, neck stiff ness, change in vision, syncope, or near syncope. Denies nausea, vomiting, abdominal pain, diarrhea, constipation, or dysuria. Has not noted any blood in urine or stool. Review of systems: As per history of present illness and below otherwise all systems reviewed and negative. Past medical history: As per history of present illness and as reviewed below otherwise noncontributory. Surgical history: As per history of present illness and as reviewed below otherwise noncontributory. Social history: See social history for further information Family history: As per history of present illness and as reviewed below otherwise noncontributory. Physical exam: General: Patient is alert, oriented, and in mild respiratory distress, tachypnic. However, patient sitting comfortably on exam table speaking near complete sentences. HEENT: Atraumatic, normocephalic, pupils equal and reactive bilaterally, negative for conjunctival pallor or scleral icterus, mucous membranes moist, TMs normal bilaterally, throat clear, neck supple, nontender, trachea midline. No drooling or trismus noted. No meningeal signs. No hot potato voice noted. Lungs: Diffuse crackles and wheezing to auscultation of all lung martinez, breath sounds equal bilaterally, chest nontender. Heart: Distant heart sounds, limited due to body habitus. S1S2, regular rate and rhythm without overt murmur Abdomen: Obese, soft, nondistended, nontender. Negative for masses or hepatosplenomegaly. Negative for costovertebral tenderness. Pelvis: Stable nontender. Genitourinary: Deferred. Rectal: Deferred. Skin: Intact, warm, dry. No lesions or rashes noted. Extremities: Atraumatic, negative for cords or calf pain. Neurovascular unremarkable. 3+ pitting edema to bilateral knees. Neuro: Awake, alert, oriented. Cranial nerves II through XII unremarkable. Cerebellum unremarkable. Motor and sensory unremarkable throughout. Exam nonfocal. Notes: 95% on RA. Placed on 2L NC with resolution of tachypnia. Dr. Hinkle directly involved in patient care. [facility] consulted on patient and will transfer to Dr. Villarreal via flight as EMS is not available for a few hours. Voices understanding and is agreeable to plan of care. Denies any further questions or concerns at this time. Diagnostics: CBC, CMP, UA, EKG, Troponin, BNP, CXR Therapeutics: Duoneb, Oxygen, Hernandez Cath, Lasix IV, Nitro paste Impression: Congestive heart failure exacerbation Pulmonary edema Dyspnea Plan: 1. Transfer to [facility] via flight to Dr. Villarreal. Definitive disposition and diagnosis as appropriate pending reevaluation and review of above. Chest Pain Score (Numeric/FACES): 5 - Related Data Allergies Allergy/AdvReac Type Severity Reaction Status Date / Time codeine Allergy Nausea and Verified 05/13/19 20:41 Vomiting epinephrine Allergy Other Verified 05/13/19 20:41 hydrocortisone Allergy Cannot Verified 05/13/19 20:41 [From Cortizone-10] Remember levofloxacin [From Levaquin] Allergy Leg Cramps Verified 05/13/19 20:41 metoprolol Allergy Chest Pain Verified 05/13/19 20:41 morphine Allergy Nausea Verified 05/13/19 20:41 Penicillins Allergy Anaphylactic Verified 05/13/19 20:41 Shock sulfamethoxazole Allergy Cannot Verified 05/13/19 20:41 Remember trimethoprim [From Bactrim] Allergy Cannot Verified 05/13/19 20:41 Remember metal Allergy Rash Uncoded 05/13/19 20:41 Home Meds: Home Meds Losartan/Hydrochlorothiazide [Losartan-HCTZ 100-25 MG] 1 tab PO DAILY 08/24/15 [ History] Azithromycin [IJD: Azithromycin] 250 mg PO ASDIRECTED #6 tab 02/28/17 [Rx] Oseltamivir Phosphate [IJD: Tamiflu] 75 mg PO BID #8 capsule 02/28/17 [Rx] Prednisone [IJD: Prednisone] 10 mg PO ASDIRECTED #28 tab 02/28/17 [Rx] Albuterol [IJD: Ventolin HFA] 1 puff INH BID 03/04/17 [History] Furosemide [Lasix] 20 mg PO ASDIRECTED 05/13/19 [History] Past Medical History HEENT History: Reports: Impaired Vision Cardiovascular History: Reports: Hypertension [employer] History: Reports: Musculoskeletal History: Reports: Gout, Other (See Below) Other Musculoskeletal History: chronic pain Psychiatric History: Reports: Anxiety Oncologic (Cancer) History: Reports: Breast - Infectious Disease History Infectious Disease History: Reports: Chicken Pox, Measles, Mumps - Past Surgical History Female Surgical History: Reports: Other (See Below) Other Female Surgeries/Procedures: bilateral mastectomy Social & Family History - Family History Family Medical History: Noncontributory - Tobacco Use Smoking Status *Q: Never Smoker Second Hand Smoke Exposure: No - Caffeine Use Caffeine Use: Reports: None Caffeine Use Comment: 1-2 cups - Recreational Drug Use Recreational Drug Use: No ED ROS GENERAL - Review of Systems Review Of Systems: ROS reveals no pertinent complaints other than HPI. ED EXAM, GENERAL - Physical Exam Exam: See Below (see dictation) Course - Vital Signs Last Recorded V/S: Last Vital Signs Temp 36.4 C 05/13/19 20:50 Pulse 118 H 05/13/19 20:50 Resp 16 05/13/19 20:50 BP 170/91 H 05/13/19 20:50 Pulse Ox 95 05/13/19 20:50 - Orders/Labs/Meds Orders: Active Orders 24 hr Category Date Time Status Cardiac Monitoring [RC] . DIRECTED Care 05/13/19 21:00 Active EKG Documentation Completion [RC] STAT Care 05/13/19 21:01 Active Hernandez Catheter Insertion [Insert Urinary Catheter] [OM. Care 05/13/19 21:45 Ordered PC] Q24H Oxygen Therapy, ED [RC] ASDIRECTED Care 05/13/19 21:45 Ordered RT Aerosol Therapy [RC] ASDIRECTED Care 05/13/19 21:23 Active Urinary Catheter Assessment [RC] ASDIRECTED Care 05/13/19 21:46 Ordered Chest 1V Frontal [CR] Stat Exams 05/13/19 21:10 Ordered Labs: Laboratory Tests 05/13/19 05/13/19 05/13/19 Range/Units 21:14 21:14 21:14 WBC 3.85 L (4.0-11.0) K/uL RBC 3.58 L (4.30-5.90) M/uL Hgb 8.8 L (12.0-16.0) g/dL Hct 29.4 L (36.0-46.0) % MCV 82.1 (80.0-98.0) fL MCH 24.6 L (27.0-32.0) pg MCHC 29.9 L (31.0-37.0) g/dL RDW Std Deviation 51.7 (28.0-62.0) fl RDW Coeff of Iesha 17 H (11.0-15.0) % Plt Count 377 (150-400) K/uL MPV 9.10 (7.40-12.00) fL Add Manual Diff YES Neutrophils % (Manual) 50 (48.0-80.0) % Band Neutrophils % 3 % Lymphocytes % (Manual) 25 (16.0-40.0) % Monocytes % (Manual) 18 H (0.0-15.0) % Eosinophils % (Manual) 3 (0.0-7.0) % Basophils % (Manual) 1 (0.0-1.5) % Nucleated RBC % 0.0 /100WBC Absolute Seg Neuts 1.9 (1.4-5.7) Band Neutrophils # 0.1 Lymphocytes # (Manual) 1.0 (0.6-2.4) Monocytes # (Manual) 0.7 (0.0-0.8) Eosinophils # (Manual) 0.1 (0.0-0.7) Basophils # (Manual) 0.0 (0.0-0.1) Nucleated RBCs # 0 K/uL Sodium 133 L (136-145) mmol/L Potassium 3.9 (3.5-5.1) mmol/L Chloride 100 (98-107) mmol/L Carbon Dioxide 23.9 (21.0-32.0) mmol/L BUN 15 (7.0-18.0) mg/dL Creatinine 0.7 (0.6-1.0) mg/dL Est Cr Clr Drug Dosing 69.19 mL/min Estimated GFR (MDRD) > 60.0 ml/min Glucose 108 H (74-106) mg/dL Calcium 8.7 (8.5-10.1) mg/dL Total Bilirubin 0.6 (0.2-1.0) mg/dL AST 28 (15-37) IU/L ALT 41 (14-63) IU/L Alkaline Phosphatase 64 (46-116) U/L Troponin I < 0.050 (0.000-0.056) ng/mL B-Natriuretic Peptide 691 H (<100) PG/ML Total Protein 7.3 (6.4-8.2) g/dL Albumin 2.7 L (3.4-5.0) g/dL Globulin 4.6 H (2.6-4.0) g/dL Albumin/Globulin Ratio 0.6 L (0.9-1.6) Urine Color Urine Appearance Urine pH (5.0-8.0) Ur Specific Berthold (1.001-1.035) Urine Protein (NEGATIVE) mg/dL Urine Glucose (UA) (NEGATIVE) mg/dL Urine Ketones (NEGATIVE) mg/dL Urine Occult Blood (NEGATIVE) Urine Nitrite (NEGATIVE) Urine Bilirubin (NEGATIVE) Urine Urobilinogen (<2.0) EU/dL Ur Leukocyte Esterase (NEGATIVE) 05/13/19 Range/Units 22:10 WBC (4.0-11.0) K/uL RBC (4.30-5.90) M/uL Hgb (12.0-16.0) g/dL Hct (36.0-46.0) % MCV (80.0-98.0) fL MCH (27.0-32.0) pg MCHC (31.0-37.0) g/dL RDW Std Deviation (28.0-62.0) fl RDW Coeff of Iesha (11.0-15.0) % Plt Count (150-400) K/uL MPV (7.40-12.00) fL Add Manual Diff Neutrophils % (Manual) (48.0-80.0) % Band Neutrophils % % Lymphocytes % (Manual) (16.0-40.0) % Monocytes % (Manual) (0.0-15.0) % Eosinophils % (Manual) (0.0-7.0) % Basophils % (Manual) (0.0-1.5) % Nucleated RBC % /100WBC Absolute Seg Neuts (1.4-5.7) Band Neutrophils # Lymphocytes # (Manual) (0.6-2.4) Monocytes # (Manual) (0.0-0.8) Eosinophils # (Manual) (0.0-0.7) Basophils # (Manual) (0.0-0.1) Nucleated RBCs # K/uL Sodium (136-145) mmol/L Potassium (3.5-5.1) mmol/L Chloride (98-107) mmol/L Carbon Dioxide (21.0-32.0) mmol/L BUN (7.0-18.0) mg/dL Creatinine (0.6-1.0) mg/dL Est Cr Clr Drug Dosing mL/min Estimated GFR (MDRD) ml/min Glucose (74-106) mg/dL Calcium (8.5-10.1) mg/dL Total Bilirubin (0.2-1.0) mg/dL AST (15-37) IU/L ALT (14-63) IU/L Alkaline Phosphatase (46-116) U/L Troponin I (0.000-0.056) ng/mL B-Natriuretic Peptide (<100) PG/ML Total Protein (6.4-8.2) g/dL Albumin (3.4-5.0) g/dL Globulin (2.6-4.0) g/dL Albumin/Globulin Ratio (0.9-1.6) Urine Color YELLOW Urine Appearance CLEAR Urine pH 5.5 (5.0-8.0) Ur Specific Berthold 1.015 (1.001-1.035) Urine Protein NEGATIVE (NEGATIVE) mg/dL Urine Glucose (UA) NEGATIVE (NEGATIVE) mg/dL Urine Ketones NEGATIVE (NEGATIVE) mg/dL Urine Occult Blood NEGATIVE (NEGATIVE) Urine Nitrite NEGATIVE (NEGATIVE) Urine Bilirubin NEGATIVE (NEGATIVE) Urine Urobilinogen 0.2 (<2.0) EU/dL Ur Leukocyte Esterase NEGATIVE (NEGATIVE) Meds: Medications Discontinued Medications Generic Name Dose Route Start Last Admin Trade Name Freq PRN Reason Stop Dose Admin Albuterol/Ipratropium 3 ml 05/13/19 21:23 05/13/19 21:32 Duoneb 3.0-0.5 Mg/3 Ml NEB 05/13/19 21:24 3 ml ONETIME ONE Administration Furosemide 40 mg 05/13/19 21:45 Lasix IVPUSH 05/13/19 21:46 NOW ONE Nitroglycerin 1 gm 05/13/19 22:07 Nitro-Bid 2% TOP 05/13/19 22:08 ONETIME ONE Departure - Departure Time of Disposition: 22:25 Disposition: DC/Tfer to [facility] 02 Clinical Impression: Congestive heart failure due to valvular disease Pulmonary edema Qualifiers: Chronicity: acute Qualified Code(s): J81.0 - Acute pulmonary edema - Discharge Information - My Orders Last 24 Hours: My Active Orders 05/13/19 21:00 Cardiac Monitoring [RC] . DIRECTED 05/13/19 21:01 EKG Documentation Completion [RC] STAT 05/13/19 21:10 Chest 1V Frontal [CR] Stat 05/13/19 21:23 RT Aerosol Therapy [RC] ASDIRECTED 05/13/19 21:45 Hernandez Catheter Insertion [Insert Urinary Catheter] [OM.PC] Q24H Oxygen Therapy, ED [RC] ASDIRECTED 05/13/19 21:46 Urinary Catheter Assessment [RC] ASDIRECTED - Assessment/Plan Last 24 Hours: My Active Orders 05/13/19 21:00 Cardiac Monitoring [RC] . DIRECTED 05/13/19 21:01 EKG Documentation Completion [RC] STAT 05/13/19 21:10 Chest 1V Frontal [CR] Stat 05/13/19 21:23 RT Aerosol Therapy [RC] ASDIRECTED 05/13/19 21:45 Hernandez Catheter Insertion [Insert Urinary Catheter] [OM.PC] Q24H Oxygen Therapy, ED [RC] ASDIRECTED 05/13/19 21:46 Urinary Catheter Assessment [RC] ASDIRECTED
[2019-05-13] MEDS ORDERED: Nitroglycerin 2% Oint 1 GM UD Packet TOP ONE (22:07)
--- NOTE | 2019-05-13 22:23 | CR ---
Indication: Pain, shortness of breath Technique: Chest 1 view Comparison: April 24, 2019 Findings/Impression: Stable cardiomegaly. There is opacity at the left lung base which may represent a combination elevated left hemidiaphragm versus effusion and atelectasis/infiltrate. The right hilum remains full. There is no pneumothorax. No acute osseous abnormality. Consider chest CT for further evaluation if clinically indicated. Dictated by Katia Posadas MD @ May 13 2019 10:22PM Signed by Dr. Katia Posadas @ May 13 2019 10:22PM
[2019-05-14] VITALS: BP 123/85
== END 2019-05-14 00:11 ==
LOC: MW.ED 20:32
DX: I38 Endocarditis, valve unspecified (principal); I11.0 Hypertensive heart disease with heart failure; I50.9 Heart failure, unspecified; J81.0 Acute pulmonary edema; F41.9 Anxiety disorder, unspecified; Z79.899 Other long term (current) drug therapy; Z88.5 Allergy status to narcotic agent; Z88.0 Allergy status to penicillin; Z91.09 Other allergy status, other than to drugs and biological substances; Z88.2 Allergy status to sulfonamides
CPT/HCPCS: 36415; 51702; 71045; 80053; 81003; 83880; 84484; 85025; 93005; 94640; 96374; 99285; J1940; J7620-GY

== ENCOUNTER 2020-05-29 16:56 | Observation (INO) | payer MEDICARE, BC, OTHER ==
[2020-05-29] MEDS ORDERED: Sodium Chloride 0.9% 10 ML Syringe FLUSH PRN (17:24)
[2020-05-29] MEDS ORDERED: Sodium Chloride 0.9% 2.5 ML Syringe FLUSH PRN (17:24)
[2020-05-29] MEDS ORDERED: Acetaminophen 325 MG Tab PO ONE (17:29)
--- NOTE | 2020-05-29 17:29 | EDM.PDOC ---
<Jeremias Frost - Last Filed: 05/29/20 19:15> ED HPI GENERAL MEDICAL PROBLEM - General Chief Complaint: General Stated Complaint: NOT FEELING WELL Time Seen by Provider: 05/29/20 17:00 - History of Present Illness INITIAL COMMENTS - FREE TEXT/NARRATIVE: 64-year-old female with a history of CHF, valve replacement, breast cancer with bilateral mastectomy who is presenting with generalized malaise. Patient woke up and had some dyspnea she thought that she may be was retaining fluid. However, she noted that her legs were not particularly swollen. She felt generally unwell throughout the day. She had a sudden sharp rapid cramp in her abdomen she thought maybe she would need to have diarrhea but that was not the case. She denies cough or chest pain she denies any pain in her stomach beyond this initial cramp. No pain in her flanks. No dysuria or hematuria. No headache or neck stiffness. Patient reports compliance with her medications including her twice daily Lasix. - Related Data Allergies Allergy/AdvReac Type Severity Reaction Status Date / Time codeine Allergy Nausea and Verified 05/29/20 17:19 Vomiting epinephrine Allergy Other Verified 05/29/20 17:19 hydrocortisone Allergy Cannot Verified 05/29/20 17:19 [From Cortizone-10] Remember levofloxacin [From Levaquin] Allergy Leg Cramps Verified 05/29/20 17:19 metoprolol Allergy Chest Pain Verified 05/29/20 17:19 morphine Allergy Nausea Verified 05/29/20 17:19 Penicillins Allergy Anaphylactic Verified 05/29/20 17:19 Shock sulfamethoxazole Allergy Cannot Verified 05/29/20 17:19 Remember trimethoprim [From Bactrim] Allergy Cannot Verified 05/29/20 17:19 Remember metal Allergy Rash Uncoded 05/29/20 17:19 Home Meds: Home Meds Furosemide 40 mg PO DAILY 05/29/20 [History] Ipratropium/Albuterol Sulfate [Iprat-Albut 0.5-3(2.5) MG/3 ML] 3 mg INH Q6H 05/29/20 [History] Losartan [Cozaar] 50 mg PO DAILY 05/29/20 [History] Potassium Chloride 20 meq PO DAILY 05/29/20 [History] metroNIDAZOLE 250 mg PO DAILY 05/29/20 [History] Past Medical History HEENT History: Reports: Impaired Vision Cardiovascular History: Reports: Hypertension 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: Musculoskeletal History: Reports: Gout, Other (See Below) Other Musculoskeletal History: chronic pain Psychiatric History: Reports: Anxiety Oncologic (Cancer) History: Reports: Breast - Infectious Disease History Infectious Disease History: Reports: Chicken Pox, Measles, Mumps - Past Surgical History Female Surgical History: Reports: Other (See Below) Other Female Surgeries/Procedures: bilateral mastectomy Social & Family History - Family History Family Medical History: Noncontributory - Caffeine Use Caffeine Use: Reports: None Caffeine Use Comment: 1-2 cups ED ROS GENERAL - Review of Systems Review Of Systems: See Below Free Text/Narrative/Comment: General: Per HPI Skin: No rash. Eyes: No vision problems. ENT: No sore throat. Neck: No neck stiffness. Respiratory: Per HPI Cardiac: No chest pain. Gastrointestinal: Per HPI, no vomiting Urinary: No dysuria. Musculoskeletal: No myalgias/arthralgias. Neurologic: No headache. ED EXAM, GENERAL - Physical Exam Exam: See Below Free Text/Narrative:: General Appearance: No acute distress, appears comfortable Skin: No rash HEENT: Normocephalic/atraumatic, sclera anicteric, mucous membranes moist Neck: Normal range of motion Chest and Lungs: Bilateral breath sounds, clear to auscultation Cardiovascular: Tachycardic rate, regular rhythm, intact distal perfusion, trace pitting lower extremity edema in the ankles bilaterally Abdomen: Soft, non-tender Back: Normal Musculoskeletal: No focal tenderness no focal joint swelling Neurologic: Awake, alert, no obvious deficits, moving all extremities Psychiatric: Appropriate, cooperative EKG INTERPRETATION EKG Interpretation Comments: EKG obtained at 1723 demonstrates sinus tachycardia with a rate of 126 abnormal R wave progression but no acute ischemia intervals normal with QTC of 458 Departure - Departure Disposition: Refer to Observation Clinical Impression: Congestive heart failure due to valvular disease, Sepsis - Discharge Information Referrals: Jerrod Solares MD [Primary Care Provider] - Forms: ED Department Discharge Sepsis Event Note (ED) - Evaluation Sepsis Screening Result: Possible Sepsis Risk - Assessment/Plan Assessment:: 64-year-old female with history of multiple medical problems as noted presenting with fever and tachycardia. Minimal focality otherwise. COVID considered and relevant swab will be sent. Pneumonia considered and chest x-ray pending. Abdominal exam is benign given that would not CT abdomen pelvis at this point. Urinary tract infection certainly a consideration as well. CBC, CMP, lactic acid, urinalysis all pending. Patient does have a history of significant cardiac disease but I doubt primary cardiac etiology. Her EKG demonstrates tachycardia but is otherwise without concerning finding. BNP and troponin ordered to assess fluid status and heart strain. Will need to be cautious with IV fluid given her history of heart failure. Lactic acid is pending if elevated will provide gentle fluid resuscitation. Tylenol for the fever as well and will reassess. Labs with normal lactic acid significant leukocytosis COVID is negative patient refusing Tylenol pt is already on lasix and an ARB so I would rather not add toradol. CXR is negative for PNA, awaiting UA result. 1899: Pt's UA is w/out signs of UTI. No clinical concern for meningitis or encephalitis. No acute pain that would suggest osteomyelitis. Pt feels like her defibrillator is bothering her. However, it is not tender and is not erythematous it is not warm or swollen I do not have a clinical concern for infection of her defibrillator. Patient continues to refuse Tylenol but agrees to a trial of normal saline. Patient will be given 500 cc of normal saline and will reassess. Patient's fever is breaking, will reassess after 500ml IVF. 1914: Patient continues to refuse to stay. She does agree to wait for the IV fluid and a reassessment. Pt signed out to Dr. Del Rio pending this. <Charlie Del Rio - Last Filed: 05/29/20 20:56> Course - Vital Signs Last Recorded V/S: Last Vital Signs Temp 100.3 F 05/29/20 20:18 Pulse 111 H 05/29/20 20:18 Resp 19 05/29/20 20:18 BP 121/54 L 05/29/20 20:18 Pulse Ox 94 L 05/29/20 20:18 - Orders/Labs/Meds Orders: Active Orders 24 hr Category Date Time Status C-REACTIVE PROTEIN [CHEM] Stat Lab 05/29/20 20:47 Ordered CULTURE BLOOD [BC] Stat Lab 05/29/20 20:39 Ordered CULTURE BLOOD [BC] Stat Lab 05/29/20 20:39 Ordered CULTURE BLOOD [BC] Stat Lab 05/29/20 20:46 Ordered CULTURE BLOOD [BC] Stat Lab 05/29/20 20:46 Ordered PROCALCITONIN [REF] Stat Lab 05/29/20 17:34 Received Aztreonam [Azactam] 2 gm Med 05/29/20 22:00 Ordered Sodium Chloride 0.9% [Normal Saline] 50 ml IV Q8HR Sodium Chloride 0.9% [Normal Saline] 500 ml Med 05/29/20 18:45 Active IV .BOLUS Sodium Chloride 0.9% [Saline Flush] Med 05/29/20 17:24 Active 10 ml FLUSH ASDIRECTED PRN Sodium Chloride 0.9% [Saline Flush] Med 05/29/20 17:24 Active 2.5 ml FLUSH ASDIRECTED PRN Vancomycin Med 05/29/20 21:00 Ordered 1,755.405 mg IV Q12H Blood Culture x2 Reflex Set [OM.PC] Stat Ot 05/29/20 20:39 Ordered Blood Culture x2 Reflex Set [OM.PC] Stat Ot 05/29/20 20:46 Ordered Saline Lock Insert [OM.PC] Stat Ot 05/29/20 17:24 Ordered Medication Orders Sodium Chloride (Normal Saline) 500 mls @ 999 mls/hr IV .BOLUS BETHANY Last Admin: 05/29/20 18:52 Dose: 999 mls/hr Documented by: ANANDA Sodium Chloride (Saline Flush) 10 ml FLUSH ASDIRECTED PRN PRN Reason: Keep Vein Open Sodium Chloride (Saline Flush) 2.5 ml FLUSH ASDIRECTED PRN PRN Reason: Keep Vein Open Vancomycin HCl (Vancomycin) 1,755.405 mg 15 mg/kg (1755.405 mg) IV Q12H [facility] Labs: Laboratory Tests 05/29/20 05/29/20 05/29/20 Range/Units 17:34 17:34 17:34 WBC 17.11 H (4.0-11.0) K/uL RBC 4.77 (4.30-5.90) M/uL Hgb 12.7 (12.0-16.0) g/dL Hct 41.4 (36.0-46.0) % MCV 86.8 (80.0-98.0) fL MCH 26.6 L (27.0-32.0) pg MCHC 30.7 L (31.0-37.0) g/dL RDW Std Deviation 46.6 (28.0-62.0) fl RDW Coeff of Iesha 15 (11.0-15.0) % Plt Count 267 (150-400) K/uL MPV 9.80 (7.40-12.00) fL Neut % (Auto) 87.9 H (48.0-80.0) % Lymph % (Auto) 4.9 L (16.0-40.0) % [place] % (Auto) 6.3 (0.0-15.0) % Eos % (Auto) 0.8 (0.0-7.0) % Baso % (Auto) 0.1 (0.0-1.5) % Neut # (Auto) 15.0 H (1.4-5.7) K/uL Lymph # (Auto) 0.8 (0.6-2.4) K/uL [place] # (Auto) 1.1 H (0.0-0.8) K/uL Eos # (Auto) 0.1 (0.0-0.7) K/uL Baso # (Auto) 0.0 (0.0-0.1) K/uL Nucleated RBC % 0.0 /100WBC Nucleated RBCs # 0 K/uL Lactate 1.8 (0.20-2.00) mmol/L Sodium 136 (136-145) mmol/L Potassium 4.4 (3.5-5.1) mmol/L Chloride 98 (98-107) mmol/L Carbon Dioxide 30.6 (21.0-32.0) mmol/L BUN 15 (7.0-18.0) mg/dL Creatinine 0.7 (0.6-1.0) mg/dL Est Cr Clr Drug Dosing 68.27 mL/min Estimated GFR (MDRD) > 60.0 ml/min Glucose 97 (74-106) mg/dL Calcium 9.7 (8.5-10.1) mg/dL Magnesium 2.0 (1.8-2.4) mg/dL Total Bilirubin 0.4 (0.2-1.0) mg/dL AST 28 (15-37) IU/L ALT 19 (14-63) IU/L Alkaline Phosphatase 87 (46-116) U/L Troponin I < 0.050 (0.000-0.056) ng/mL B-Natriuretic Peptide (<100) PG/ML Total Protein 8.3 H (6.4-8.2) g/dL Albumin 3.9 (3.4-5.0) g/dL Globulin 4.4 H (2.6-4.0) g/dL Albumin/Globulin Ratio 0.9 (0.9-1.6) Lipase 80 (73-393) U/L Urine Color Urine Appearance Urine pH (5.0-8.0) Ur Specific [place] (1.001-1.035) Urine Protein (NEGATIVE) mg/dL Urine Glucose (UA) (NEGATIVE) mg/dL Urine Ketones (NEGATIVE) mg/dL Urine Occult Blood (NEGATIVE) Urine Nitrite (NEGATIVE) Urine Bilirubin (NEGATIVE) Urine Urobilinogen (<2.0) EU/dL Ur Leukocyte Esterase (NEGATIVE) Urine RBC (0-2/HPF) Urine WBC (0-5/HPF) Ur Epithelial Cells (NONE-FEW) Urine Bacteria (NEGATIVE) COVID-19 (BASILIA) (NEGATIVE) 05/29/20 05/29/20 05/29/20 Range/Units 17:34 17:34 18:23 WBC (4.0-11.0) K/uL RBC (4.30-5.90) M/uL Hgb (12.0-16.0) g/dL Hct (36.0-46.0) % MCV (80.0-98.0) fL MCH (27.0-32.0) pg MCHC (31.0-37.0) g/dL RDW Std Deviation (28.0-62.0) fl RDW Coeff of Iesha (11.0-15.0) % Plt Count (150-400) K/uL MPV (7.40-12.00) fL Neut % (Auto) (48.0-80.0) % Lymph % (Auto) (16.0-40.0) % [place] % (Auto) (0.0-15.0) % Eos % (Auto) (0.0-7.0) % Baso % (Auto) (0.0-1.5) % Neut # (Auto) (1.4-5.7) K/uL Lymph # (Auto) (0.6-2.4) K/uL [place] # (Auto) (0.0-0.8) K/uL Eos # (Auto) (0.0-0.7) K/uL Baso # (Auto) (0.0-0.1) K/uL Nucleated RBC % /100WBC Nucleated RBCs # K/uL Lactate (0.20-2.00) mmol/L Sodium (136-145) mmol/L Potassium (3.5-5.1) mmol/L Chloride (98-107) mmol/L Carbon Dioxide (21.0-32.0) mmol/L BUN (7.0-18.0) mg/dL Creatinine (0.6-1.0) mg/dL Est Cr Clr Drug Dosing mL/min Estimated GFR (MDRD) ml/min Glucose (74-106) mg/dL Calcium (8.5-10.1) mg/dL Magnesium (1.8-2.4) mg/dL Total Bilirubin (0.2-1.0) mg/dL AST (15-37) IU/L ALT (14-63) IU/L Alkaline Phosphatase (46-116) U/L Troponin I (0.000-0.056) ng/mL B-Natriuretic Peptide 158 H (<100) PG/ML Total Protein (6.4-8.2) g/dL Albumin (3.4-5.0) g/dL Globulin (2.6-4.0) g/dL Albumin/Globulin Ratio (0.9-1.6) Lipase (73-393) U/L Urine Color YELLOW Urine Appearance CLEAR Urine pH 7.0 (5.0-8.0) Ur Specific [place] 1.015 (1.001-1.035) Urine Protein NEGATIVE (NEGATIVE) mg/dL Urine Glucose (UA) NEGATIVE (NEGATIVE) mg/dL Urine Ketones NEGATIVE (NEGATIVE) mg/dL Urine Occult Blood TRACE-INTACT H (NEGATIVE) Urine Nitrite NEGATIVE (NEGATIVE) Urine Bilirubin NEGATIVE (NEGATIVE) Urine Urobilinogen 0.2 (<2.0) EU/dL Ur Leukocyte Esterase MODERATE H (NEGATIVE) Urine RBC 0-2 (0-2/HPF) Urine WBC 1-3 (0-5/HPF) Ur Epithelial Cells RARE (NONE-FEW) Urine Bacteria RARE (NEGATIVE) COVID-19 (BASLIIA) NEGATIVE (NEGATIVE) Meds: Medications Generic Name Dose Route Start Last Admin Trade Name Freq PRN Reason Stop Dose Admin Sodium Chloride 500 mls @ 999 mls/hr 05/29/20 18:45 05/29/20 18:52 Normal Saline IV 999 mls/hr .BOLUS BETHANY Administration Sodium Chloride 10 ml 05/29/20 17:24 Saline Flush FLUSH ASDIRECTED PRN Keep Vein Open Sodium Chloride 2.5 ml 05/29/20 17:24 Saline Flush FLUSH ASDIRECTED PRN Keep Vein Open Vancomycin HCl 1,755.405 mg 05/29/20 21:00 Vancomycin 15 mg/kg (1755.405 mg) IV Q12H BETHANY Discontinued Medications Generic Name Dose Route Start Last Admin Trade Name Freq PRN Reason Stop Dose Admin Acetaminophen 650 mg 05/29/20 17:29 05/29/20 17:44 Tylenol PO 05/29/20 17:30 Not Given NOW ONE - Re-Assessments/Exams Free Text/Narrative Re-Assessment/Exam: 05/29/201919 - patient was signed out to me by Dr. Frost. I performed a repeat exam and history after signout. Patient has a history of AICD, CHF, aortic bovine valve, BRCA, pulmonary hypertension presents today for lightheadedness, generalized malaise, nausea prior to arrival. She also claims that her chest "felt weird ". Her last chemotherapy was in March/2019. She currently denies nausea, vomiting, diarrhea, myalgia, headache, neck pain, neck stiffness, chest pain, cough, abdominal pain, dysuria, urinary frequency, back pain, skin ulcers, neck pain. She admits to dyspnea on exertion. She does not use home O2. On my exam she was tachycardic and febrile, with slight tenderness to her left chest wall AICD site. There was no erythema to the AICD, there is no induration. Her neck was supple, she had no focal deficits, her abdomen was soft and nontender and not distended, there was no CVA tenderness. 05/29/202053 - I had a prolonged discussion with the patient regarding findings concerning for sepsis. She now agrees to be admitted to the hospital. We will give her broad-spectrum antibiotics at this time. Case discussed with Dr. Ray, who agrees to admit to obs/tele, and assume care at this point. The hospitalist's documentation supersedes all other documentation on this patient with regard to any conflicts or discrepancies from this point forward. Any emergency conditions have been treated to the ability of the ED prior to admission. Departure - Departure Time of Disposition: 20:56 Condition: Fair - Discharge Information *PRESCRIPTION DRUG MONITORING PROGRAM REVIEWED*: Not Applicable *COPY OF PRESCRIPTION DRUG MONITORING REPORT IN PATIENT YANETH: Not Applicable Critical Care Note - Critical Care Note Comments: Critical Care: The high probability of sudden, clinically significant deterioration in the patient's condition required the highest level of my preparedness to intervene urgently. The services I provided to this patient were to treat and/or prevent clinically significant deterioration. Services included the following: chart data review, reviewing nursing notes and/or old charts, documentation time, senior staff consultant collaboration regarding findings and treatment options, medication orders and management, direct patient care, vital sign assessments and ordering, interpreting and reviewing diagnostic studies/lab tests. Aggregate critical care time includes only time during which I was engaged in work directly related to the patient's care, as described above, whether at the bedside or elsewhere in the Emergency Department. It did not include time spent performing other reported procedures or the services of residents, students, nurses or physician assistants. Frequent interventions and/or frequent repeat evaluations were required as well as counseling and coordination of care regarding prognosis, treatments, and discussions with patient, staff and consultants. Critical Care (excluding other procedures): 40 minutes Sepsis Event Note (ED) - Focused Exam Vital Signs: Vital Signs Temp Pulse Resp BP Pulse Ox 05/29/20 20:18 100.3 F 111 H 19 121/54 L 94 L 05/29/20 18:54 100.7 F H 05/29/20 18:39 128 H 20 154/68 H 93 L 05/29/20 17:19 102 F H 131 H 22 H 193/93 H 97 - My Orders Last 24 Hours: My Active Orders 05/29/20 20:39 CULTURE BLOOD [BC] Stat CULTURE BLOOD [BC] Stat Blood Culture x2 Reflex Set [OM.PC] Stat 05/29/20 20:46 CULTURE BLOOD [BC] Stat CULTURE BLOOD [BC] Stat Blood Culture x2 Reflex Set [OM.PC] Stat 05/29/20 20:47 C-REACTIVE PROTEIN [CHEM] Stat 05/29/20 21:00 Vancomycin 1,755.405 mg IV Q12H 05/29/20 22:00 Aztreonam [Azactam] 2 gm Sodium Chloride 0.9% [Normal Saline] 50 ml IV Q8HR - Assessment/Plan Last 24 Hours: My Active Orders 05/29/20 20:39 CULTURE BLOOD [BC] Stat CULTURE BLOOD [BC] Stat Blood Culture x2 Reflex Set [OM.PC] Stat 05/29/20 20:46 CULTURE BLOOD [BC] Stat CULTURE BLOOD [BC] Stat Blood Culture x2 Reflex Set [OM.PC] Stat 05/29/20 20:47 C-REACTIVE PROTEIN [CHEM] Stat 05/29/20 21:00 Vancomycin 1,755.405 mg IV Q12H 05/29/20 22:00 Aztreonam [Azactam] 2 gm Sodium Chloride 0.9% [Normal Saline] 50 ml IV Q8HR
--- NOTE | 2020-05-29 17:54 | CR ---
Chest: Portable view of the chest was obtained. Comparison: Prior chest x-ray of 05/13/19. Heart is mildly enlarged. Linear density is noted with the left midlung most likely representing scarring. Lungs otherwise are clear with no acute parenchymal change being seen. AICD is noted. Bony structures are grossly intact. Impression: 1. Findings as described above. 2. Nothing acute is appreciated. Diagnostic code #2 This report was dictated in MDT
[2020-05-29 18:23] LABS: BLOOD UREA NITROGEN,BUN 15 mg/dL (7.0-18.0); CARBON DIOXIDE,CO2 30.6 mmol/L (21.0-32.0); CHLORIDE,CL 98 mmol/L (98-107); GLUCOSE RANDOM 97 mg/dL (74-106); LIPASE 80 U/L (73-393); POTASSIUM,K 4.4 mmol/L (3.5-5.1); SODIUM,NA 136 mmol/L (136-145)
[2020-05-29] MEDS ORDERED: Sodium Chloride 0.9% 500 ML IV SCH (18:45)
[2020-05-29] MEDS ORDERED: Vancomycin 500 MG SDV IV SCH (21:00)
[2020-05-29] MEDS ORDERED: Ondansetron 4 MG/2 ML SDV IVPUSH PRN (21:32)
[2020-05-29] MEDS ORDERED: Albuterol/Ipratropium 3.0-0.5 MG/3 ML Neb Soln NEB PRN (21:32)
[2020-05-29] MEDS ORDERED: Acetaminophen 325 MG Tab PO PRN (21:32)
--- NOTE | 2020-05-29 21:54 | PCM.HP.2 ---
H&P History of Present Illness - General Date of Service: 05/29/20 Admit Problem/Dx: Admission Diagnosis/Problem Admission Diagnosis/Problem Sepsis - History of Present Illness Initial Comments - Free Text/Narative: Patient is a 64 y/o F with history of AICD, CHF, aortic bovine valve, BRCA, pulmonary hypertension presents today for lightheadedness, generalized malaise, nausea prior to arrival. She stated that her chest "felt weird " but denied any chest pain or acute SOB. Her last chemotherapy was in March/2019. She currently denies nausea, vomiting, diarrhea, myalgia, headache, neck pain, neck stiffness, chest pain, cough, abdominal pain, dysuria, urinary frequency, back pain, skin ulcers, neck pain. She admits to dyspnea on exertion which is chronic for her. She does not use home O2. Patient has been shipped to [facility] twice in past for CHF, had a complicated hospital course both times per patient. In the ER patient was found to be febrile with tachycardia, EKG shows sinus tachy, Labs showed le ucocytosis. BNP was mildly elevated. Patient didnt look to be in volume overload clinically. No apparent source of infection was revealed upon physical exam and history. CXR showed no infiltrate, Labs were non reveling as well. Patient recicved 500 ml bolus and broad spectrum abx and was admitted for concern of SIRS/ Possible sepsis. Upin further quwstining patient states thatshe feels she has a fistula in her vagina. She states there is a foul smelling discharge smelling like faeces. think she accidndtly caused an injury which has now gotten bigger and resulted in a fistula. She was suppoed to see OBGYN but so farhasnt seen anyone regarding it. She is very apprehensive of her Allergies, and getting IV antibiotics. - Related Data Allergies/Adverse Reactions: Allergies Allergy/AdvReac Type Severity Reaction Status Date / Time codeine Allergy Nausea and Verified 05/29/20 22:24 Vomiting epinephrine Allergy Other Verified 05/29/20 22:24 hydrocortisone Allergy Cannot Verified 05/29/20 22:24 [From Cortizone-10] Remember levofloxacin [From Levaquin] Allergy Leg Cramps Verified 05/29/20 22:24 metoprolol Allergy Chest Pain Verified 05/29/20 22:24 morphine Allergy Nausea Verified 05/29/20 22:24 Penicillins Allergy Anaphylactic Verified 05/29/20 22:24 Shock sulfamethoxazole Allergy Cannot Verified 05/29/20 22:24 Remember trimethoprim [From Bactrim] Allergy Cannot Verified 05/29/20 22:24 Remember metal Allergy Rash Uncoded 05/29/20 22:24 Home Medications: Home Meds Aspirin 81 mg PO DAILY 05/29/20 [History] Furosemide 40 mg PO BID 05/29/20 [History] Ipratropium/Albuterol Sulfate [Iprat-Albut 0.5-3(2.5) MG/3 ML] 3 mg INH Q6H PRN 05/29/20 [History] Losartan [Cozaar] 50 mg PO DAILY 05/29/20 [History] Potassium Chloride 20 meq PO BID 05/29/20 [History] Past Medical History HEENT History: Reports: Impaired Vision Cardiovascular History: Reports: Hypertension SPINNER CAP FRAME History: Reports: Musculoskeletal History: Reports: Gout, Other (See Below) Other Musculoskeletal History: chronic pain Psychiatric History: Reports: Anxiety Oncologic (Cancer) History: Reports: Breast - Infectious Disease History Infectious Disease History: Reports: Chicken Pox, Measles, Mumps - Past Surgical History Female Surgical History: Reports: Other (See Below) Other Female Surgeries/Procedures: bilateral mastectomy Social & Family History - Family History Family Medical History: Noncontributory - Tobacco Use Smoking Status *Q: Unknown Ever Smoked - Caffeine Use Caffeine Use: Reports: None Caffeine Use Comment: 1-2 cups - Recreational Drug Use Recreational Drug Use: No H&P Review of Systems - Review of Systems: Review Of Systems: See Below General: Reports: Malaise, Weakness. Denies: Fever, Chills HEENT: Reports: Dysphasia. Denies: Ear Pain Pulmonary: Denies: Shortness of Breath, Wheezing, Pleuritic Chest Pain, Cough, Sputum Cardiovascular: Reports: Dyspnea on Exertion. Denies: Chest Pain, Palpitations, Orthopnea Gastrointestinal: Denies: Abdominal Pain, Black Stool, Bloody Stool, Constipation, Diarrhea Genitourinary: Denies: Dysuria, Frequency, Burning Musculoskeletal: Denies: Neck Pain, Shoulder Pain Skin: Denies: Cyanosis, Jaundice Exam - Exam Exam: See Below - Vital Signs Vital Signs: Last Vital Signs Temp 37.9 C 07/13/20 20:18 Pulse 115 H 05/29/20 21:10 Resp 19 05/29/20 21:10 BP 131/68 05/29/20 21:10 Pulse Ox 93 L 05/29/20 21:10 Weight: 117.027 kg - Exam Quality Assessment: Supplemental Oxygen General: Alert, Oriented, Cooperative Neck: Supple, Trachea Midline Lungs: Clear to Auscultation, Normal Respiratory Effort Cardiovascular: Regular Rate, Regular Rhythm, Systolic Murmur (Female) Exam: Deferred Rectal (Female) Exam: Deferred - Patient Data Lab Results Last 24 hrs: Laboratory Results - last 24 hr 05/29/20 05/29/20 05/29/20 Range/Units 17:34 17:34 17:34 WBC 17.11 H (4.0-11.0) K/uL RBC 4.77 (4.30-5.90) M/uL Hgb 12.7 (12.0-16.0) g/dL Hct 41.4 (36.0-46.0) % MCV 86.8 (80.0-98.0) fL MCH 26.6 L (27.0-32.0) pg MCHC 30.7 L (31.0-37.0) g/dL RDW Std Deviation 46.6 (28.0-62.0) fl RDW Coeff of Iesha 15 (11.0-15.0) % Plt Count 267 (150-400) K/uL MPV 9.80 (7.40-12.00) fL Neut % (Auto) 87.9 H (48.0-80.0) % Lymph % (Auto) 4.9 L (16.0-40.0) % [place] % (Auto) 6.3 (0.0-15.0) % Eos % (Auto) 0.8 (0.0-7.0) % Baso % (Auto) 0.1 (0.0-1.5) % Neut # (Auto) 15.0 H (1.4-5.7) K/uL Lymph # (Auto) 0.8 (0.6-2.4) K/uL [place] # (Auto) 1.1 H (0.0-0.8) K/uL Eos # (Auto) 0.1 (0.0-0.7) K/uL Baso # (Auto) 0.0 (0.0-0.1) K/uL Nucleated RBC % 0.0 /100WBC Nucleated RBCs # 0 K/uL Lactate 1.8 (0.20-2.00) mmol/L Sodium 136 (136-145) mmol/L Potassium 4.4 (3.5-5.1) mmol/L Chloride 98 (98-107) mmol/L Carbon Dioxide 30.6 (21.0-32.0) mmol/L BUN 15 (7.0-18.0) mg/dL Creatinine 0.7 (0.6-1.0) mg/dL Est Cr Clr Drug Dosing 68.27 mL/min Estimated GFR (MDRD) > 60.0 ml/min Glucose 97 (74-106) mg/dL Calcium 9.7 (8.5-10.1) mg/dL Magnesium 2.0 (1.8-2.4) mg/dL Total Bilirubin 0.4 (0.2-1.0) mg/dL AST 28 (15-37) IU/L ALT 19 (14-63) IU/L Alkaline Phosphatase 87 (46-116) U/L Troponin I < 0.050 (0.000-0.056) ng/mL C-Reactive Protein (0.00-0.90) mg/dL B-Natriuretic Peptide (<100) PG/ML Total Protein 8.3 H (6.4-8.2) g/dL Albumin 3.9 (3.4-5.0) g/dL Globulin 4.4 H (2.6-4.0) g/dL Albumin/Globulin Ratio 0.9 (0.9-1.6) Lipase 80 (73-393) U/L Urine Color Urine Appearance Urine pH (5.0-8.0) Ur Specific [place] (1.001-1.035) Urine Protein (NEGATIVE) mg/dL Urine Glucose (UA) (NEGATIVE) mg/dL Urine Ketones (NEGATIVE) mg/dL Urine Occult Blood (NEGATIVE) Urine Nitrite (NEGATIVE) Urine Bilirubin (NEGATIVE) Urine Urobilinogen (<2.0) EU/dL Ur Leukocyte Esterase (NEGATIVE) Urine RBC (0-2/HPF) Urine WBC (0-5/HPF) Ur Epithelial Cells (NONE-FEW) Urine Bacteria (NEGATIVE) COVID-19 (BASILIA) (NEGATIVE) 07/13/20 07/13/20 07/13/20 Range/Units 17:34 17:34 18:23 WBC (4.0-11.0) K/uL RBC (4.30-5.90) M/uL Hgb (12.0-16.0) g/dL Hct (36.0-46.0) % MCV (80.0-98.0) fL MCH (27.0-32.0) pg MCHC (31.0-37.0) g/dL RDW Std Deviation (28.0-62.0) fl RDW Coeff of Iesha (11.0-15.0) % Plt Count (150-400) K/uL MPV (7.40-12.00) fL Neut % (Auto) (48.0-80.0) % Lymph % (Auto) (16.0-40.0) % [place] % (Auto) (0.0-15.0) % Eos % (Auto) (0.0-7.0) % Baso % (Auto) (0.0-1.5) % Neut # (Auto) (1.4-5.7) K/uL Lymph # (Auto) (0.6-2.4) K/uL [place] # (Auto) (0.0-0.8) K/uL Eos # (Auto) (0.0-0.7) K/uL Baso # (Auto) (0.0-0.1) K/uL Nucleated RBC % /100WBC Nucleated RBCs # K/uL Lactate (0.20-2.00) mmol/L Sodium (136-145) mmol/L Potassium (3.5-5.1) mmol/L Chloride (98-107) mmol/L Carbon Dioxide (21.0-32.0) mmol/L BUN (7.0-18.0) mg/dL Creatinine (0.6-1.0) mg/dL Est Cr Clr Drug Dosing mL/min Estimated GFR (MDRD) ml/min Glucose (74-106) mg/dL Calcium (8.5-10.1) mg/dL Magnesium (1.8-2.4) mg/dL Total Bilirubin (0.2-1.0) mg/dL AST (15-37) IU/L ALT (14-63) IU/L Alkaline Phosphatase (46-116) U/L Troponin I (0.000-0.056) ng/mL C-Reactive Protein (0.00-0.90) mg/dL B-Natriuretic Peptide 158 H (<100) PG/ML Total Protein (6.4-8.2) g/dL Albumin (3.4-5.0) g/dL Globulin (2.6-4.0) g/dL Albumin/Globulin Ratio (0.9-1.6) Lipase (73-393) U/L Urine Color YELLOW Urine Appearance CLEAR Urine pH 7.0 (5.0-8.0) Ur Specific [place] 1.015 (1.001-1.035) Urine Protein NEGATIVE (NEGATIVE) mg/dL Urine Glucose (UA) NEGATIVE (NEGATIVE) mg/dL Urine Ketones NEGATIVE (NEGATIVE) mg/dL Urine Occult Blood TRACE-INTACT H (NEGATIVE) Urine Nitrite NEGATIVE (NEGATIVE) Urine Bilirubin NEGATIVE (NEGATIVE) Urine Urobilinogen 0.2 (<2.0) EU/dL Ur Leukocyte Esterase MODERATE H (NEGATIVE) Urine RBC 0-2 (0-2/HPF) Urine WBC 1-3 (0-5/HPF) Ur Epithelial Cells RARE (NONE-FEW) Urine Bacteria RARE (NEGATIVE) COVID-19 ([place]ILIA) NEGATIVE (NEGATIVE) 05/29/20 Range/Units 21:05 WBC (4.0-11.0) K/uL RBC (4.30-5.90) M/uL Hgb (12.0-16.0) g/dL Hct (36.0-46.0) % MCV (80.0-98.0) fL MCH (27.0-32.0) pg MCHC (31.0-37.0) g/dL RDW Std Deviation (28.0-62.0) fl RDW Coeff of Iesha (11.0-15.0) % Plt Count (150-400) K/uL MPV (7.40-12.00) fL Neut % (Auto) (48.0-80.0) % Lymph % (Auto) (16.0-40.0) % [place] % (Auto) (0.0-15.0) % Eos % (Auto) (0.0-7.0) % Baso % (Auto) (0.0-1.5) % Neut # (Auto) (1.4-5.7) K/uL Lymph # (Auto) (0.6-2.4) K/uL [place] # (Auto) (0.0-0.8) K/uL Eos # (Auto) (0.0-0.7) K/uL Baso # (Auto) (0.0-0.1) K/uL Nucleated RBC % /100WBC Nucleated RBCs # K/uL Lactate (0.20-2.00) mmol/L Sodium (136-145) mmol/L Potassium (3.5-5.1) mmol/L Chloride (98-107) mmol/L Carbon Dioxide (21.0-32.0) mmol/L BUN (7.0-18.0) mg/dL Creatinine (0.6-1.0) mg/dL Est Cr Clr Drug Dosing mL/min Estimated GFR (MDRD) ml/min Glucose (74-106) mg/dL Calcium (8.5-10.1) mg/dL Magnesium (1.8-2.4) mg/dL Total Bilirubin (0.2-1.0) mg/dL AST (15-37) IU/L ALT (14-63) IU/L Alkaline Phosphatase (46-116) U/L Troponin I (0.000-0.056) ng/mL C-Reactive Protein 4.10 H (0.00-0.90) mg/dL B-Natriuretic Peptide (<100) PG/ML Total Protein (6.4-8.2) g/dL Albumin (3.4-5.0) g/dL Globulin (2.6-4.0) g/dL Albumin/Globulin Ratio (0.9-1.6) Lipase (73-393) U/L Urine Color Urine Appearance Urine pH (5.0-8.0) Ur Specific [place] (1.001-1.035) Urine Protein (NEGATIVE) mg/dL Urine Glucose (UA) (NEGATIVE) mg/dL Urine Ketones (NEGATIVE) mg/dL Urine Occult Blood (NEGATIVE) Urine Nitrite (NEGATIVE) Urine Bilirubin (NEGATIVE) Urine Urobilinogen (<2.0) EU/dL Ur Leukocyte Esterase (NEGATIVE) Urine RBC (0-2/HPF) Urine WBC (0-5/HPF) Ur Epithelial Cells (NONE-FEW) Urine Bacteria (NEGATIVE) COVID-19 ([place]IL[place]) (NEGATIVE) Result Diagrams: 05/30/20 05:55 05/30/20 05:55 Damon Results Last 24 hrs: Microbiology 05/29/20 20:55 Anaerobic Blood Culture - Final Blood - Venous Sepsis Event Note - Evaluation Sepsis Screening Result: Possible Sepsis Risk - Focused Exam Vital Signs: Vital Signs Temp Pulse Resp BP Pulse Ox 05/29/20 21:10 115 H 19 131/68 93 L 05/29/20 20:18 37.9 C 111 H 19 121/54 L 94 L 05/29/20 18:54 38.2 C H 05/29/20 18:39 128 H 20 154/68 H 93 L 05/29/20 17:19 38.8 C H 131 H 22 H 193/93 H 97 Date Exam was Performed: 05/30/20 Time Exam was Performed: 17:48 - Problem List (1) SIRS (systemic inflammatory response syndrome) SNOMED Code(s): 050742006 ICD Code: R65.10 - SIRS OF NON-INFECTIOUS ORIGIN W/O ACUTE ORGAN DYSFUNCTION Status: Acute Current Visit: Yes (2) HTN (hypertension) SNOMED Code(s): 55972128 ICD Code: I10 - ESSENTIAL (PRIMARY) HYPERTENSION Status: Acute Current Visit: Yes (3) Congestive heart failure due to valvular disease SNOMED Code(s): 172138082 ICD Code: I50.9 - HEART FAILURE, UNSPECIFIED; I38 - ENDOCARDITIS, VALVE UNSPECIFIED Status: Acute Current Visit: Yes Problem List Initiated/Reviewed/Updated: Yes Orders Last 24hrs: Active Orders 24 hr Category Date Time Status Admission Status [Patient Status] [ADT] Stat ADT 05/29/20 20:57 Active Ambulate [RC] ASDIRECTED Care 05/29/20 21:32 Ordered Antiembolic Devices [RC] PER UNIT ROUTINE Care 05/29/20 21:33 Ordered Oxygen Therapy [RC] PRN Care 05/29/20 21:32 Ordered Pulse Oximetry [RC] PRN Care 05/29/20 21:32 Ordered RT Aerosol Therapy [RC] ASDIRECTED Care 05/29/20 21:37 Ordered VTE/DVT Education [RC] PER UNIT ROUTINE Care 07/13/20 21:32 Ordered Vital Signs [RC] Q4H Care 05/29/20 21:32 Ordered CULTURE BLOOD [BC] Stat Lab 05/29/20 20:55 Results CULTURE BLOOD [BC] Stat Lab 05/29/20 21:05 Received CULTURE URINE [RM] Stat Lab 05/29/20 21:31 Ordered PROCALCITONIN [REF] Stat Lab 05/29/20 17:34 Received Acetaminophen [Tylenol] Med 05/29/20 21:32 Ordered 650 mg PO Q4H PRN Albuterol/Ipratropium [DuoNeb 3.0-0.5 MG/3 ML] Med 05/29/20 21:32 Ordered 3 ml NEB Q4HRRT PRN Aztreonam [Azactam] 2 gm Med 05/29/20 22:00 Active Sodium Chloride 0.9% [Normal Saline] 50 ml IV Q8HR Ondansetron [Zofran] Med 05/29/20 21:32 Ordered 4 mg IVPUSH Q4H PRN Pantoprazole [ProTONIX IV] Med 05/29/20 21:32 Ordered 40 mg IV Q12HR Sodium Chloride 0.9% [Normal Saline] 500 ml Med 05/29/20 18:45 Active IV .BOLUS Sodium Chloride 0.9% [Saline Flush] Med 05/29/20 17:24 Active 10 ml FLUSH ASDIRECTED PRN Sodium Chloride 0.9% [Saline Flush] Med 05/29/20 17:24 Active 2.5 ml FLUSH ASDIRECTED PRN Vancomycin Med 05/29/20 21:00 Active 1,755.405 mg IV Q12H Blood Culture x2 Reflex Set [OM.PC] Stat Ot 05/29/20 20:39 Ordered Blood Culture x2 Reflex Set [OM.PC] Stat Ot 05/29/20 20:46 Ordered Isolation [COMM] Routine Ot 05/29/20 21:23 Ordered Saline Lock Insert [OM.PC] Stat Ot 05/29/20 17:24 Ordered Sequential Compression Device [OM.PC] Per Unit Routine Ot 05/29/20 21:32 Ordered Medication Orders Acetaminophen (Tylenol) 650 mg PO Q4H PRN PRN Reason: Pain (Mild 1-3)/fever Albuterol/Ipratropium (Duoneb 3.0-0.5 Mg/3 Ml) 3 ml NEB Q4HRRT PRN PRN Reason: Shortness Of Breath/wheezing Sodium Chloride (Normal Saline) 500 mls @ 999 mls/hr IV .BOLUS [facility] Last Admin: 05/29/20 18:52 Dose: 999 mls/hr Documented by: ANANDA Aztreonam 2 gm/ Sodium (Chloride) 50 mls @ 100 mls/hr IV Q8HR BETHANY Ondansetron HCl (Zofran) 4 mg IVPUSH Q4H PRN PRN Reason: Nausea/Vomiting Pantoprazole Sodium (Protonix Iv) 40 mg IV Q12HR BETHANY Sodium Chloride (Saline Flush) 10 ml FLUSH ASDIRECTED PRN PRN Reason: Keep Vein Open Sodium Chloride (Saline Flush) 2.5 ml FLUSH ASDIRECTED PRN PRN Reason: Keep Vein Open Vancomycin HCl (Vancomycin) 1,755.405 mg 15 mg/kg (1755.405 mg) IV Q12H [facility] Assessment/Plan Comment:: 64 y/o F admitted for SIRS, no defenite source identified yet Mild UTI, CXRshows no acute infiltrate, old scarring Started on Broad specterum abx, will continue Hold off on fluids due to h.o Systolic CHF, BP is stable, tachy cardia ia resolving, lactate normal f/u on blood cultures, urine cultures Tylenol for fever SCD for DVT ppx May need fistulogram to assess for possible chronic fistula, possible but unlikely source of infection. Based on patients clinical course will decide between outpatient vs inpatient evaluation
[2020-05-29] MEDS: Pantoprazole 40 MG Vial IV SCH (22:38)
[2020-05-30 06:23] LABS: CARBON DIOXIDE,CO2 28.1 mmol/L (21.0-32.0); POTASSIUM,K 4.3 mmol/L (3.5-5.1)
[2020-05-30] MEDS: Pantoprazole 40 MG Vial IV SCH ×2 (09:31→21:51)
--- NOTE | 2020-05-30 11:45 | PCM.PN ---
- General Info Date of Service: 05/30/20 Admission Dx/Problem (Free Text): Admission Diagnosis/Problem Admission Diagnosis/Problem Sepsis Subjective Update: Seen at bedside, resting, states she has a erythematous rash all over her torso which wasn't visible yesterday, also revels she has a sore in his axilla, she tried to use corn starch to dry it. - Review of Systems General: Denies: Fever, Weakness, Fatigue Pulmonary: Denies: Shortness of Breath, Pleuritic Chest Pain Cardiovascular: Denies: Chest Pain, Palpitations, Dyspnea on Exertion Gastrointestinal: Denies: Abdominal Pain, Constipation, Decreased Appetite Genitourinary: Denies: Dysuria, Frequency, Burning Musculoskeletal: Denies: Neck Pain, Shoulder Pain, Arm Pain Skin: Denies: Cyanosis, Jaundice, Mottled Neurological: Denies: Confusion, Dizziness, Headache Psychiatric: Denies: Confusion, Depression, Mood Lability - Patient Data Vitals - Most Recent: Last Vital Signs Temp 37.0 C 05/30/20 08:00 Pulse 93 05/30/20 08:00 Resp 20 05/30/20 08:00 BP 122/35 L 05/30/20 08:00 Pulse Ox 94 L 05/30/20 08:00 Weight - Most Recent: 117.027 kg I&O - Last 24 Hours: Intake & Output 05/29/20 05/30/20 05/30/20 22:59 06:59 14:59 Intake Total 480 Output Total 300 Balance 180 Lab Results Last 24 Hours: Laboratory Results - last 24 hr 05/29/20 05/29/20 05/29/20 Range/Units 17:34 17:34 17:34 WBC 17.11 H (4.0-11.0) K/uL RBC 4.77 (4.30-5.90) M/uL Hgb 12.7 (12.0-16.0) g/dL Hct 41.4 (36.0-46.0) % MCV 86.8 (80.0-98.0) fL MCH 26.6 L (27.0-32.0) pg MCHC 30.7 L (31.0-37.0) g/dL RDW Std Deviation 46.6 (28.0-62.0) fl RDW Coeff of Iesha 15 (11.0-15.0) % Plt Count 267 (150-400) K/uL MPV 9.80 (7.40-12.00) fL Neut % (Auto) 87.9 H (48.0-80.0) % Lymph % (Auto) 4.9 L (16.0-40.0) % [place] % (Auto) 6.3 (0.0-15.0) % Eos % (Auto) 0.8 (0.0-7.0) % Baso % (Auto) 0.1 (0.0-1.5) % Neut # (Auto) 15.0 H (1.4-5.7) K/uL Lymph # (Auto) 0.8 (0.6-2.4) K/uL [place] # (Auto) 1.1 H (0.0-0.8) K/uL Eos # (Auto) 0.1 (0.0-0.7) K/uL Baso # (Auto) 0.0 (0.0-0.1) K/uL Nucleated RBC % 0.0 /100WBC Nucleated RBCs # 0 K/uL Lactate 1.8 (0.20-2.00) mmol/L Sodium 136 (136-145) mmol/L Potassium 4.4 (3.5-5.1) mmol/L Chloride 98 (98-107) mmol/L Carbon Dioxide 30.6 (21.0-32.0) mmol/L BUN 15 (7.0-18.0) mg/dL Creatinine 0.7 (0.6-1.0) mg/dL Est Cr Clr Drug Dosing 68.27 mL/min Estimated GFR (MDRD) > 60.0 ml/min Glucose 97 (74-106) mg/dL Calcium 9.7 (8.5-10.1) mg/dL Phosphorus (2.6-4.7) mg/dL Magnesium 2.0 (1.8-2.4) mg/dL Total Bilirubin 0.4 (0.2-1.0) mg/dL AST 28 (15-37) IU/L ALT 19 (14-63) IU/L Alkaline Phosphatase 87 (46-116) U/L Troponin I < 0.050 (0.000-0.056) ng/mL C-Reactive Protein (0.00-0.90) mg/dL B-Natriuretic Peptide (<100) PG/ML Total Protein 8.3 H (6.4-8.2) g/dL Albumin 3.9 (3.4-5.0) g/dL Globulin 4.4 H (2.6-4.0) g/dL Albumin/Globulin Ratio 0.9 (0.9-1.6) Lipase 80 (73-393) U/L Urine Color Urine Appearance Urine pH (5.0-8.0) Ur Specific [place] (1.001-1.035) Urine Protein (NEGATIVE) mg/dL Urine Glucose (UA) (NEGATIVE) mg/dL Urine Ketones (NEGATIVE) mg/dL Urine Occult Blood (NEGATIVE) Urine Nitrite (NEGATIVE) Urine Bilirubin (NEGATIVE) Urine Urobilinogen (<2.0) EU/dL Ur Leukocyte Esterase (NEGATIVE) Urine RBC (0-2/HPF) Urine WBC (0-5/HPF) Ur Epithelial Cells (NONE-FEW) Urine Bacteria (NEGATIVE) COVID-19 ([facility]) (NEGATIVE) 05/29/20 05/29/20 05/29/20 Range/Units 17:34 17:34 18:23 WBC (4.0-11.0) K/uL RBC (4.30-5.90) M/uL Hgb (12.0-16.0) g/dL Hct (36.0-46.0) % MCV (80.0-98.0) fL MCH (27.0-32.0) pg MCHC (31.0-37.0) g/dL RDW Std Deviation (28.0-62.0) fl RDW Coeff of Iesha (11.0-15.0) % Plt Count (150-400) K/uL MPV (7.40-12.00) fL Neut % (Auto) (48.0-80.0) % Lymph % (Auto) (16.0-40.0) % [place] % (Auto) (0.0-15.0) % Eos % (Auto) (0.0-7.0) % Baso % (Auto) (0.0-1.5) % Neut # (Auto) (1.4-5.7) K/uL Lymph # (Auto) (0.6-2.4) K/uL [place] # (Auto) (0.0-0.8) K/uL Eos # (Auto) (0.0-0.7) K/uL Baso # (Auto) (0.0-0.1) K/uL Nucleated RBC % /100WBC Nucleated RBCs # K/uL Lactate (0.20-2.00) mmol/L Sodium (136-145) mmol/L Potassium (3.5-5.1) mmol/L Chloride (98-107) mmol/L Carbon Dioxide (21.0-32.0) mmol/L BUN (7.0-18.0) mg/dL Creatinine (0.6-1.0) mg/dL Est Cr Clr Drug Dosing mL/min Estimated GFR (MDRD) ml/min Glucose (74-106) mg/dL Calcium (8.5-10.1) mg/dL Phosphorus (2.6-4.7) mg/dL Magnesium (1.8-2.4) mg/dL Total Bilirubin (0.2-1.0) mg/dL AST (15-37) IU/L ALT (14-63) IU/L Alkaline Phosphatase (46-116) U/L Troponin I (0.000-0.056) ng/mL C-Reactive Protein (0.00-0.90) mg/dL B-Natriuretic Peptide 158 H (<100) PG/ML Total Protein (6.4-8.2) g/dL Albumin (3.4-5.0) g/dL Globulin (2.6-4.0) g/dL Albumin/Globulin Ratio (0.9-1.6) Lipase (73-393) U/L Urine Color YELLOW Urine Appearance CLEAR Urine pH 7.0 (5.0-8.0) Ur Specific [place] 1.015 (1.001-1.035) Urine Protein NEGATIVE (NEGATIVE) mg/dL Urine Glucose (UA) NEGATIVE (NEGATIVE) mg/dL Urine Ketones NEGATIVE (NEGATIVE) mg/dL Urine Occult Blood TRACE-INTACT H (NEGATIVE) Urine Nitrite NEGATIVE (NEGATIVE) Urine Bilirubin NEGATIVE (NEGATIVE) Urine Urobilinogen 0.2 (<2.0) EU/dL Ur Leukocyte Esterase MODERATE H (NEGATIVE) Urine RBC 0-2 (0-2/HPF) Urine WBC 1-3 (0-5/HPF) Ur Epithelial Cells RARE (NONE-FEW) Urine Bacteria RARE (NEGATIVE) COVID-19 ([facility]) NEGATIVE (NEGATIVE) 05/29/20 05/30/20 05/30/20 Range/Units 21:05 05:55 05:55 WBC 7.52 (4.0-11.0) K/uL RBC 4.36 (4.30-5.90) M/uL Hgb 11.4 L (12.0-16.0) g/dL Hct 37.9 (36.0-46.0) % MCV 86.9 (80.0-98.0) fL MCH 26.1 L (27.0-32.0) pg MCHC 30.1 L (31.0-37.0) g/dL RDW Std Deviation 47.5 (28.0-62.0) fl RDW Coeff of Iesha 15 (11.0-15.0) % Plt Count 225 (150-400) K/uL MPV 9.30 (7.40-12.00) fL Neut % (Auto) 71.4 (48.0-80.0) % Lymph % (Auto) 13.0 L (16.0-40.0) % [place] % (Auto) 15.3 H (0.0-15.0) % Eos % (Auto) 0.0 (0.0-7.0) % Baso % (Auto) 0.3 (0.0-1.5) % Neut # (Auto) 5.4 (1.4-5.7) K/uL Lymph # (Auto) 1.0 (0.6-2.4) K/uL [place] # (Auto) 1.2 H (0.0-0.8) K/uL Eos # (Auto) 0.0 (0.0-0.7) K/uL Baso # (Auto) 0.0 (0.0-0.1) K/uL Nucleated RBC % 0.0 /100WBC Nucleated RBCs # 0 K/uL Lactate (0.20-2.00) mmol/L Sodium 136 (136-145) mmol/L Potassium 4.3 (3.5-5.1) mmol/L Chloride 100 (98-107) mmol/L Carbon Dioxide 28.1 (21.0-32.0) mmol/L BUN 19 H (7.0-18.0) mg/dL Creatinine 1.0 (0.6-1.0) mg/dL Est Cr Clr Drug Dosing 47.79 mL/min Estimated GFR (MDRD) 55.5 ml/min Glucose 122 H (74-106) mg/dL Calcium 9.1 (8.5-10.1) mg/dL Phosphorus 4.4 (2.6-4.7) mg/dL Magnesium 2.2 (1.8-2.4) mg/dL Total Bilirubin (0.2-1.0) mg/dL AST (15-37) IU/L ALT (14-63) IU/L Alkaline Phosphatase (46-116) U/L Troponin I (0.000-0.056) ng/mL C-Reactive Protein 4.10 H (0.00-0.90) mg/dL B-Natriuretic Peptide (<100) PG/ML Total Protein (6.4-8.2) g/dL Albumin (3.4-5.0) g/dL Globulin (2.6-4.0) g/dL Albumin/Globulin Ratio (0.9-1.6) Lipase (73-393) U/L Urine Color Urine Appearance Urine pH (5.0-8.0) Ur Specific [place] (1.001-1.035) Urine Protein (NEGATIVE) mg/dL Urine Glucose (UA) (NEGATIVE) mg/dL Urine Ketones (NEGATIVE) mg/dL Urine Occult Blood (NEGATIVE) Urine Nitrite (NEGATIVE) Urine Bilirubin (NEGATIVE) Urine Urobilinogen (<2.0) EU/dL Ur Leukocyte Esterase (NEGATIVE) Urine RBC (0-2/HPF) Urine WBC (0-5/HPF) Ur Epithelial Cells (NONE-FEW) Urine Bacteria (NEGATIVE) COVID-19 ([facility]) (NEGATIVE) Damon Results Last 24 Hours: Microbiology 05/29/20 20:55 Anaerobic Blood Culture - Final Blood - Venous Med Orders - Current: Current Medications Acetaminophen (Tylenol) 650 mg PO Q4H PRN PRN Reason: Pain (Mild 1-3)/fever Albuterol/Ipratropium (Duoneb 3.0-0.5 Mg/3 Ml) 3 ml NEB Q4HRRT PRN PRN Reason: Shortness Of Breath/wheezing Sodium Chloride (Normal Saline) 500 mls @ 999 mls/hr IV .BOLUS [facility] Last Admin: 05/29/20 18:52 Dose: 999 mls/hr Documented by: Aztreonam 2 gm/ Sodium (Chloride) 50 mls @ 100 mls/hr IV Q8HR [facility] Last Admin: 05/30/20 05:27 Dose: 100 mls/hr Documented by: Vancomycin HCl 1.25 gm/ Sodium (Chloride) 250 mls @ 166.667 mls/hr IV Q12H [facility] Last Admin: 05/30/20 11:31 Dose: 166.667 mls/hr Documented by: Nystatin (Nystop) 1 gm TOP QID [facility] Ondansetron HCl (Zofran) 4 mg IVPUSH Q4H PRN PRN Reason: Nausea/Vomiting Pantoprazole Sodium (Protonix Iv) 40 mg IV Q12HR [facility] Last Admin: 05/30/20 09:31 Dose: 40 mg Documented by: Sodium Chloride (Saline Flush) 10 ml FLUSH ASDIRECTED PRN PRN Reason: Keep Vein Open Sodium Chloride (Saline Flush) 2.5 ml FLUSH ASDIRECTED PRN PRN Reason: Keep Vein Open Vancomycin HCl (Pharmacy To Dose - Vancomycin) 1 dose .XX ASDIRECTED [facility] Discontinued Medications Acetaminophen (Tylenol) 650 mg PO NOW ONE Stop: 05/29/20 17:30 Last Admin: 05/29/20 17:44 Dose: Not Given Documented by: Vancomycin HCl 1.5 gm/ Premix 300 mls @ 300 mls/hr IV ONETIME ONE Stop: 05/29/20 23:59 Last Admin: 05/29/20 23:40 Dose: 300 mls/hr Documented by: Vancomycin HCl (Vancomycin) 1,755.405 mg 15 mg/kg (1755.405 mg) IV Q12H [facility] Last Admin: 05/29/20 22:46 Dose: Not Given Documented by: - Exam General: Alert, Oriented Neck: Supple, Trachea Midline Lungs: Clear to Auscultation, Normal Respiratory Effort. No: Decreased Breath Sounds, Crackles GI/Abdominal Exam: Normal Bowel Sounds, Soft, Non-Tender Extremities: Normal Inspection, Normal Range of Motion, Non-Tender Skin: Warm, Rash Wound/Incisions: No Drainage, Erythema Psy/Mental Status: Alert, Normal Affect Sepsis Event Note - Evaluation Sepsis Screening Result: No Definite Risk - Focused Exam Vital Signs: Vital Signs Temp Pulse Resp BP Pulse Ox 05/30/20 08:00 37.0 C 93 20 122/35 L 94 L 05/30/20 06:20 92 L 05/30/20 04:00 37.7 C 100 18 134/59 L 92 L Date Exam was Performed: 05/30/20 Time Exam was Performed: 17:47 - Problem List & Annotations (1) SIRS (systemic inflammatory response syndrome) SNOMED Code(s): 922678522 Code(s): R65.10 - SIRS OF NON-INFECTIOUS ORIGIN W/O ACUTE ORGAN DYSFUNCTION Status: Acute Current Visit: Yes (2) HTN (hypertension) SNOMED Code(s): 84023288 Code(s): I10 - ESSENTIAL (PRIMARY) HYPERTENSION Status: Acute Current Visit: Yes (3) Congestive heart failure due to valvular disease SNOMED Code(s): 858048292 Code(s): I50.9 - HEART FAILURE, UNSPECIFIED; I38 - ENDOCARDITIS, VALVE UNSPECIFIED Status: Acute Current Visit: Yes - Problem List Review Problem List Initiated/Reviewed/Updated: Yes - My Orders Last 24 Hours: My Active Orders 05/29/20 Dinner Heart Healthy Diet [DIET] 05/29/20 18:23 CULTURE URINE [RM] Stat 05/29/20 21:06 Telemetry Monitoring [Cardiac Monitoring] [RC] . DIRECTED 05/29/20 21:23 Isolation [COMM] Routine 05/29/20 21:32 Ambulate [RC] ASDIRECTED Oxygen Therapy [RC] PRN Pulse Oximetry [RC] PRN VTE/DVT Education [RC] PER UNIT ROUTINE Vital Signs [RC] Q4H Acetaminophen [Tylenol] 650 mg PO Q4H PRN Albuterol/Ipratropium [DuoNeb 3.0-0.5 MG/3 ML] 3 ml NEB Q4HRRT PRN Ondansetron [Zofran] 4 mg IVPUSH Q4H PRN Pantoprazole [ProTONIX IV] 40 mg IV Q12HR Sequential Compression Device [OM.PC] Per Unit Routine 05/29/20 21:33 Antiembolic Devices [RC] PER UNIT ROUTINE 05/29/20 21:37 RT Aerosol Therapy [RC] ASDIRECTED 05/29/20 22:45 Pharmacy to Dose - Vancomycin 1 dose .XX ASDIRECTED 05/30/20 11:00 Vancomycin 1.25 gm Sodium Chloride 0.9% [Normal Saline (AdvBag)] 250 ml IV Q12H - Plan Plan:: 64 y/o F admitted for sepsis, likely secondary to cellulitis that is more apparent today Mild UTI, CXR shows no acute infiltrate, old scarring Sepsis resolved Cont Broad spectrum abx, Hold off on fluids due to h.o Systolic CHF f/u on blood cultures, urine cultures Tylenol for fever SCD for DVT ppx May need fistulogram to assess for possible chronic fistula, needs outpatient obgyn follow up
[2020-05-30] MEDS: Furosemide 40 MG Tab PO SCH (14:00)
[2020-05-30] MEDS: Nystatin Topical Powder 15 GM Bottle TOP SCH ×3 (14:01→23:06)
[2020-05-31] MEDS: Nystatin Topical Powder 15 GM Bottle TOP SCH ×3 (06:31→18:46)
[2020-05-31 07:03] LABS: BLOOD UREA NITROGEN,BUN 19 mg/dL (7.0-18.0); CARBON DIOXIDE,CO2 27.6 mmol/L (21.0-32.0); CHLORIDE,CL 102 mmol/L (98-107); GLUCOSE RANDOM 100 mg/dL (74-106); POTASSIUM,K 3.9 mmol/L (3.5-5.1); SODIUM,NA 137 mmol/L (136-145)
[2020-05-31] MEDS: Pantoprazole 40 MG Vial IV SCH ×2 (08:26→20:28)
[2020-05-31] MEDS: Furosemide 40 MG Tab PO SCH (09:49)
--- NOTE | 2020-05-31 12:22 | PCM.PN ---
- General Info Date of Service: 05/31/20 Admission Dx/Problem (Free Text): Admission Diagnosis/Problem Admission Diagnosis/Problem Sepsis Subjective Update: Seen at bedside, resting, cellulitis is slightly better - Review of Systems General: Denies: Fever, Weakness, Fatigue Pulmonary: Denies: Shortness of Breath, Pleuritic Chest Pain Cardiovascular: Denies: Chest Pain, Palpitations, Dyspnea on Exertion Gastrointestinal: Denies: Abdominal Pain, Constipation, Decreased Appetite Genitourinary: Denies: Dysuria, Frequency, Burning Musculoskeletal: Denies: Neck Pain, Shoulder Pain, Arm Pain Skin: Denies: Cyanosis, Jaundice, Mottled, Pallor Neurological: Denies: Confusion, Dizziness, Headache - Patient Data Vitals - Most Recent: Last Vital Signs Temp 36.4 C 05/31/20 11:00 Pulse 83 05/31/20 11:00 Resp 16 05/31/20 11:00 BP 147/58 H 05/31/20 11:00 Pulse Ox 92 L 05/31/20 11:00 Weight - Most Recent: 119.5 kg I&O - Last 24 Hours: Intake & Output 05/30/20 05/31/20 05/31/20 22:59 06:59 14:59 Intake Total 1000 950 Output Total 500 600 Balance 500 350 Lab Results Last 24 Hours: Laboratory Results - last 24 hr 05/31/20 05/31/20 Range/Units 06:16 06:16 WBC 2.41 L (4.0-11.0) K/uL RBC 4.03 L (4.30-5.90) M/uL Hgb 10.7 L (12.0-16.0) g/dL Hct 35.4 L (36.0-46.0) % MCV 87.8 (80.0-98.0) fL MCH 26.6 L (27.0-32.0) pg MCHC 30.2 L (31.0-37.0) g/dL RDW Std Deviation 48.7 (28.0-62.0) fl RDW Coeff of Iesha 15 (11.0-15.0) % Plt Count 196 (150-400) K/uL MPV 9.40 (7.40-12.00) fL Add Manual Diff YES Neutrophils % (Manual) 8 L (48.0-80.0) % Band Neutrophils % 13 % Lymphocytes % (Manual) 49 H (16.0-40.0) % Monocytes % (Manual) 16 H (0.0-15.0) % Eosinophils % (Manual) 9 H (0.0-7.0) % Metamyelocytes % 5 % Nucleated RBC % 0.0 /100WBC Absolute Seg Neuts 0.2 L (1.4-5.7) Band Neutrophils # 0.3 Lymphocytes # (Manual) 1.2 (0.6-2.4) Monocytes # (Manual) 0.4 (0.0-0.8) Eosinophils # (Manual) 0.2 (0.0-0.7) Absolute Metamyelocyte 0.1 Nucleated RBCs # 0 K/uL Sodium 137 (136-145) mmol/L Potassium 3.9 (3.5-5.1) mmol/L Chloride 102 (98-107) mmol/L Carbon Dioxide 27.6 (21.0-32.0) mmol/L BUN 19 H (7.0-18.0) mg/dL Creatinine 0.8 (0.6-1.0) mg/dL Est Cr Clr Drug Dosing 59.73 mL/min Estimated GFR (MDRD) > 60.0 ml/min Glucose 100 (74-106) mg/dL Calcium 8.8 (8.5-10.1) mg/dL Phosphorus 3.5 (2.6-4.7) mg/dL Magnesium 2.2 (1.8-2.4) mg/dL Damon Results Last 24 Hours: Microbiology 05/29/20 18:23 Urine Culture - Final Urine, Bladder MIXED KOFI >100,000 CFU/ML 05/29/20 21:05 Aerobic Blood Culture - Preliminary Blood - Venous - Lab Draw NO GROWTH AFTER 1 DAY Anaerobic Blood Culture - Preliminary NO GROWTH AFTER 1 DAY 05/29/20 20:55 Aerobic Blood Culture - Preliminary Blood - Venous NO GROWTH AFTER 1 DAY Anaerobic Blood Culture - Final Med Orders - Current: Current Medications Acetaminophen (Tylenol) 650 mg PO Q4H PRN PRN Reason: Pain (Mild 1-3)/fever Albuterol/Ipratropium (Duoneb 3.0-0.5 Mg/3 Ml) 3 ml NEB Q4HRRT PRN PRN Reason: Shortness Of Breath/wheezing Furosemide (Lasix) 40 mg PO DAILY [facility] Last Admin: 05/31/20 09:49 Dose: 40 mg Documented by: Sodium Chloride (Normal Saline) 500 mls @ 999 mls/hr IV [facility] Last Admin: 05/29/20 18:52 Dose: 999 mls/hr Documented by: Aztreonam 2 gm/ Sodium (Chloride) 50 mls @ 100 mls/hr IV Q8HR [facility] Last Admin: 05/31/20 06:29 Dose: 100 mls/hr Documented by: Vancomycin HCl 1.25 gm/ Sodium (Chloride) 250 mls @ 166.667 mls/hr IV Q12H [facility] Last Admin: 05/31/20 10:37 Dose: 166.667 mls/hr Documented by: Nystatin (Nystop) 1 gm TOP QID [facility] Last Admin: 05/31/20 11:52 Dose: 1 applic Documented by: Ondansetron HCl (Zofran) 4 mg IVPUSH Q4H PRN PRN Reason: Nausea/Vomiting Pantoprazole Sodium (Protonix Iv) 40 mg IV Q12HR [facility] Last Admin: 05/31/20 08:26 Dose: 40 mg Documented by: Sodium Chloride (Saline Flush) 10 ml FLUSH ASDIRECTED PRN PRN Reason: Keep Vein Open Sodium Chloride (Saline Flush) 2.5 ml FLUSH ASDIRECTED PRN PRN Reason: Keep Vein Open Vancomycin HCl (Pharmacy To Dose - Vancomycin) 1 dose .XX ASDIRECTED [facility] Discontinued Medications Acetaminophen (Tylenol) 650 mg PO NOW ONE Stop: 05/29/20 17:30 Last Admin: 05/29/20 17:44 Dose: Not Given Documented by: Vancomycin HCl 1.5 gm/ Premix 300 mls @ 300 mls/hr IV ONETIME ONE Stop: 05/29/20 23:59 Last Admin: 05/29/20 23:40 Dose: 300 mls/hr Documented by: Vancomycin HCl (Vancomycin) 1,755.405 mg 15 mg/kg (1755.405 mg) IV Q12H [facility] Last Admin: 05/29/20 22:46 Dose: Not Given Documented by: - Exam General: Alert, Oriented HEENT: Pupils Equal, Pupils Reactive Neck: Supple Lungs: Clear to Auscultation, Normal Respiratory Effort Cardiovascular: Regular Rate, Regular Rhythm GI/Abdominal Exam: Normal Bowel Sounds, Soft, Non-Tender Skin: Warm, Rash Wound/Incisions: Erythema Improving Sepsis Event Note - Evaluation Sepsis Screening Result: No Definite Risk - Focused Exam Vital Signs: Vital Signs Temp Temp Pulse Resp BP Pulse Ox 05/31/20 11:00 36.4 C 83 16 147/58 H 92 L 05/31/20 07:08 36.6 C 65 16 128/62 94 L 05/31/20 04:33 36.4 C 94 17 108/55 L 91 L Date Exam was Performed: 05/31/20 Time Exam was Performed: 12:16 - Problem List & Annotations (1) SIRS (systemic inflammatory response syndrome) SNOMED Code(s): 942381067 Code(s): R65.10 - SIRS OF NON-INFECTIOUS ORIGIN W/O ACUTE ORGAN DYSFUNCTION Status: Acute Current Visit: Yes (2) HTN (hypertension) SNOMED Code(s): 77406210 Code(s): I10 - ESSENTIAL (PRIMARY) HYPERTENSION Status: Acute Current Visit: Yes (3) Congestive heart failure due to valvular disease SNOMED Code(s): 044481249 Code(s): I50.9 - HEART FAILURE, UNSPECIFIED; I38 - ENDOCARDITIS, VALVE UNSPECIFIED Status: Acute Current Visit: Yes - Problem List Review Problem List Initiated/Reviewed/Updated: Yes - Plan Plan:: 64 y/o F admitted for SIRS, no defenite source identified yet Mild UTI, CXR shows no acute infiltrate, old scarring Started on Broad spectrum abx, will continue Hold off on fluids due to h.o Systolic CHF, eating and drinking ok, blood cultures, urine cultures noted Tylenol for fever SCD for DVT ppx May need fistulogram to assess for possible chronic fistula, possible but unlikely source of infection. Based on patients clinical course will decide between outpatient vs inpatient evaluation
[2020-05-31] MEDS ORDERED: Linezolid 600 MG Tab PO ONE (15:27)
[2020-06-01] MEDS: Nystatin Topical Powder 15 GM Bottle TOP SCH ×3 (02:02→11:43)
[2020-06-01 06:27] LABS: BLOOD UREA NITROGEN,BUN 18 mg/dL (7.0-18.0); CARBON DIOXIDE,CO2 27.5 mmol/L (21.0-32.0); CHLORIDE,CL 104 mmol/L (98-107); GLUCOSE RANDOM 94 mg/dL (74-106); POTASSIUM,K 3.8 mmol/L (3.5-5.1); SODIUM,NA 138 mmol/L (136-145)
[2020-06-01] MEDS: Furosemide 40 MG Tab PO SCH (08:40)
[2020-06-01] MEDS: Pantoprazole 40 MG Vial IV SCH (09:29)
[2020-06-01] MEDS ORDERED: Linezolid 600 MG in Premix Bag 1 BAG IV SCH (09:45)
[2020-06-01 11:24] VITALS: BP 154/70; PULSE 79
--- NOTE | 2020-06-01 12:07 | PCM.DCSUM1 ---
Discharge Summary - Hospital Course Free Text/Narrative:: Patient is a 64 y/o F with history of AICD, CHF, aortic bovine valve, BRCA, pulmonary hypertension presents today for lightheadedness, generalized malaise, nausea prior to arrival. She stated that her chest "felt weird " but denied any chest pain or acute SOB. Her last chemotherapy was in March/2019. She currently denies nausea, vomiting, diarrhea, myalgia, headache, neck pain, neck stiffness, chest pain, cough, abdominal pain, dysuria, urinary frequency, back pain, skin ulcers, neck pain. She admits to dyspnea on exertion which is chronic for her. She does not use home O2. Patient has been shipped to [facility] twice in past for CHF, had a complicated hospital course both times per patient. In the ER patient was found to be febrile with tachycardia, EKG shows sinus tachy, Labs showed leucocytosis. BNP was mildly elevated. Patient didnt look to be in volume overload clinically. No apparent source of infection was revealed upon physical exam and history. CXR showed no infiltrate, Labs were non reveling as well. Patient received 500 ml bolus and broad spectrum abx and was admitted for concern of SIRS/ Possible sepsis. Upon further questioning patient states that she feels she has a fistula in her vagina. She states there is a foul smelling discharge smelling like faeces. think she accidently caused an injury which has now gotten bigger and resulted in a fistula. Vaginal exam was offered but patient stated she was prefer to get in done at her OBGYN office, She was supposed to see OBGYN but so far hasnt seen anyone regarding it. She is very apprehensive of her Allergies, and getting IV antibiotics. Patient was started on IV antibiotics in ER with unknown source, upon my exam patient was found have to have developed cellulitis of her chest wall lilely originating from a sore under her axilla which was getting worse. Patient was continued on IV antibiotics ( vancomycin and aztreonam), her cellulitis was slowly improving, Aztreonam was discontinued , patients blood cultures were negative, her WBC count improved and later she was mildly leucopenia likely due to IV antibiotics, no fevers, chills, Patients erythema improved and she requested to be discharged on an oral medication. Patient was eventually discharged on PO linezolid for 7 days and recommended to fu with her PCP and obtain repeat CBC to check on her WBC count. She was also recommend to fu with OBGYN for vaginal exam with speculum. - Discharge Data Discharge Date: 06/01/20 Discharge Disposition: Home, Self-Care 01 Condition: Good - Referral to Home Health Primary Care Physician: Jerrod Solares MD - Discharge Diagnosis/Problem(s) (1) SIRS (systemic inflammatory response syndrome) SNOMED Code(s): 983071858 ICD Code: R65.10 - SIRS OF NON-INFECTIOUS ORIGIN W/O ACUTE ORGAN DYSFUNCTION Status: Acute Current Visit: Yes (2) HTN (hypertension) SNOMED Code(s): 66374948 ICD Code: I10 - ESSENTIAL (PRIMARY) HYPERTENSION Status: Acute Current Visit: Yes (3) Congestive heart failure due to valvular disease SNOMED Code(s): 279303150 ICD Code: I50.9 - HEART FAILURE, UNSPECIFIED; I38 - ENDOCARDITIS, VALVE UNSPECIFIED Status: Acute Current Visit: Yes (4) Cellulitis SNOMED Code(s): 022850496 ICD Code: L03.90 - CELLULITIS, UNSPECIFIED Status: Acute Current Visit: Yes (5) Leucopenia SNOMED Code(s): 73327257, 584869099 ICD Code: D72.819 - DECREASED WHITE BLOOD CELL COUNT, UNSPECIFIED Status: Acute Current Visit: Yes - Patient Instructions Diet: Heart Healthy Diet Fluid Restriction: 2000 mL Activity: As Tolerated Driving: May Drive Today Showering/Bathing: May Shower Notify Provider of: Fever, Increased Pain, Swelling and Redness, Drainage, Nausea and/or Vomiting - Discharge Plan *PRESCRIPTION DRUG MONITORING PROGRAM REVIEWED*: Not Applicable *COPY OF PRESCRIPTION DRUG MONITORING REPORT IN PATIENT YANETH: Not Applicable Prescriptions/Med Rec: Linezolid [Zyvox] 600 mg PO BID #20 tablet Home Medications: Home Meds Aspirin 81 mg PO DAILY 05/29/20 [History] Furosemide 40 mg PO BID 05/29/20 [History] Ipratropium/Albuterol Sulfate [Iprat-Albut 0.5-3(2.5) MG/3 ML] 3 mg INH Q6H PRN 05/29/20 [History] Losartan [Cozaar] 50 mg PO DAILY 05/29/20 [History] Potassium Chloride 20 meq PO BID 05/29/20 [History] Linezolid [Zyvox] 600 mg PO BID #20 tablet 06/01/20 [Rx] Patient Handouts: Linezolid tablets, Cellulitis, Adult, [id number] Referrals: Jerrod Solares MD [Primary Care Provider] - 06/05/20 12:30 pm (Please arrive 15 minutes early to your appointment. Please bring your own face mask.) Pernell Parks MD [Physician] - 06/09/20 9:15 am (Please arrive by 0845 to be r egistered to be seen.) - Discharge Summary/Plan Comment DC Time >30 min.: No - Patient Data Vitals - Most Recent: Last Vital Signs Temp 36.3 C 06/01/20 11:00 Pulse 79 06/01/20 11:00 Resp 18 06/01/20 11:00 BP 154/70 H 06/01/20 11:00 Pulse Ox 95 06/01/20 11:00 Weight - Most Recent: 119.5 kg I&O - Last 24 hours: Intake & Output 05/31/20 06/01/20 06/01/20 22:59 06:59 14:59 Intake Total 680 900 Output Total 800 800 Balance -120 100 Lab Results - Last 24 hrs: Laboratory Results - last 24 hr 05/29/20 06/01/20 06/01/20 Range/Units 17:34 05:28 05:28 WBC 2.29 L (4.0-11.0) K/uL RBC 3.72 L (4.30-5.90) M/uL Hgb 9.8 L (12.0-16.0) g/dL Hct 32.4 L (36.0-46.0) % MCV 87.1 (80.0-98.0) fL MCH 26.3 L (27.0-32.0) pg MCHC 30.2 L (31.0-37.0) g/dL RDW Std Deviation 47.2 (28.0-62.0) fl RDW Coeff of Iesha 15 (11.0-15.0) % Plt Count 192 (150-400) K/uL MPV 9.50 (7.40-12.00) fL Add Manual Diff YES Neutrophils % (Manual) 10 L (48.0-80.0) % Band Neutrophils % 4 % Lymphocytes % (Manual) 45 H (16.0-40.0) % Monocytes % (Manual) 30 H (0.0-15.0) % Eosinophils % (Manual) 9 H (0.0-7.0) % Basophils % (Manual) 2 H (0.0-1.5) % Nucleated RBC % 0.0 /100WBC Absolute Seg Neuts 0.2 L (1.4-5.7) Band Neutrophils # 0.1 Lymphocytes # (Manual) 1.0 (0.6-2.4) Monocytes # (Manual) 0.7 (0.0-0.8) Eosinophils # (Manual) 0.2 (0.0-0.7) Basophils # (Manual) 0.0 (0.0-0.1) Nucleated RBCs # 0 K/uL Sodium 138 (136-145) mmol/L Potassium 3.8 (3.5-5.1) mmol/L Chloride 104 (98-107) mmol/L Carbon Dioxide 27.5 (21.0-32.0) mmol/L BUN 18 (7.0-18.0) mg/dL Creatinine 0.7 (0.6-1.0) mg/dL Est Cr Clr Drug Dosing 68.27 mL/min Estimated GFR (MDRD) > 60.0 ml/min Glucose 94 (74-106) mg/dL Calcium 8.5 (8.5-10.1) mg/dL Phosphorus 3.5 (2.6-4.7) mg/dL Magnesium 2.0 (1.8-2.4) mg/dL Procalcitonin <0.05 (<0.10) ng/mL JERALD Results - Last 24 hrs: Microbiology 05/29/20 21:05 Aerobic Blood Culture - Preliminary Blood - Venous - Lab Draw NO GROWTH AFTER 2 DAYS Anaerobic Blood Culture - Preliminary NO GROWTH AFTER 2 DAYS 05/29/20 20:55 Aerobic Blood Culture - Preliminary Blood - Venous NO GROWTH AFTER 2 DAYS Anaerobic Blood Culture - Final 05/29/20 18:23 Urine Culture - Final Urine, Bladder MIXED KOFI >100,000 CFU/ML Med Orders - Current: Current Medications Acetaminophen (Tylenol) 650 mg PO Q4H PRN PRN Reason: Pain (Mild 1-3)/fever Albuterol/Ipratropium (Duoneb 3.0-0.5 Mg/3 Ml) 3 ml NEB Q4HRRT PRN PRN Reason: Shortness Of Breath/wheezing Furosemide (Lasix) 40 mg PO DAILY [facility] Last Admin: 06/01/20 08:40 Dose: 40 mg Documented by: Sodium Chloride (Normal Saline) 500 mls @ 999 mls/hr IV .BOLUS [facility] Last Admin: 05/29/20 18:52 Dose: 999 mls/hr Documented by: Linezolid 600 mg/ Premix 300 mls @ 300 mls/hr IV Q12H [facility] Last Admin: 06/01/20 10:47 Dose: 300 mls/hr Documented by: Nystatin (Nystop) 1 gm TOP QID [facility] Last Admin: 06/01/20 11:43 Dose: 1 applic Documented by: Ondansetron HCl (Zofran) 4 mg IVPUSH Q4H PRN PRN Reason: Nausea/Vomiting Pantoprazole Sodium (Protonix Iv) 40 mg IV Q12HR [facility] Last Admin: 06/01/20 09:29 Dose: 40 mg Documented by: Sodium Chloride (Saline Flush) 10 ml FLUSH ASDIRECTED PRN PRN Reason: Keep Vein Open Sodium Chloride (Saline Flush) 2.5 ml FLUSH ASDIRECTED PRN PRN Reason: Keep Vein Open Vancomycin HCl (Pharmacy To Dose - Vancomycin) 1 dose .XX ASDIRECTED [facility] Discontinued Medications Acetaminophen (Tylenol) 650 mg PO NOW ONE Stop: 05/29/20 17:30 Last Admin: 05/29/20 17:44 Dose: Not Given Documented by: Aztreonam 2 gm/ Sodium (Chloride) 50 mls @ 100 mls/hr IV Q8HR [facility] Last Admin: 05/31/20 17:23 Dose: Not Given Documented by: Vancomycin HCl 1.5 gm/ Premix 300 mls @ 300 mls/hr IV ONETIME ONE Stop: 05/29/20 23:59 Last Admin: 05/29/20 23:40 Dose: 300 mls/hr Documented by: Vancomycin HCl 1.25 gm/ Sodium (Chloride) 250 mls @ 166.667 mls/hr IV Q12H [facility] Last Admin: 05/31/20 10:37 Dose: 166.667 mls/hr Documented by: Vancomycin HCl 1.25 gm/ Sodium (Chloride) 250 mls @ 166.667 mls/hr IV Q12H [facility] Last Admin: 05/31/20 22:57 Dose: 166.667 mls/hr Documented by: Linezolid (Zyvox) 600 mg PO ONETIME ONE Stop: 05/31/20 15:28 Last Admin: 05/31/20 16:23 Dose: Not Given Documented by: Vancomycin HCl (Vancomycin) 1,755.405 mg 15 mg/kg (1755.405 mg) IV Q12H [facility] Last Admin: 05/29/20 22:46 Dose: Not Given Documented by:
== END 2020-06-01 12:45 | disposition home or self-care (01) ==
LOC: MW.ED 16:56 → MW.MS 20:57 → UNDOADMOB 22:13 → MW.MS 22:13
PROVIDERS: ADMIT Student in an Organized Health Care Education/Training Program; ATTEND Student in an Organized Health Care Education/Training Program
DX: L03.313 Cellulitis of chest wall (principal); N39.0 Urinary tract infection, site not specified; D72.819 Decreased white blood cell count, unspecified; I11.0 Hypertensive heart disease with heart failure; I50.9 Heart failure, unspecified; I38 Endocarditis, valve unspecified; F41.9 Anxiety disorder, unspecified; I27.20 Pulmonary hypertension, unspecified; Z20.828 Contact with and (suspected) exposure to other viral communicable diseases; Z88.5 Allergy status to narcotic agent; Z79.899 Other long term (current) drug therapy; Z88.8 Allergy status to other drugs, medicaments and biological substances; Z88.0 Allergy status to penicillin; Z88.2 Allergy status to sulfonamides; Z88.1 Allergy status to other antibiotic agents; Z95.2 Presence of prosthetic heart valve; Z85.3 Personal history of malignant neoplasm of breast; Z90.13 Acquired absence of bilateral breasts and nipples
CPT/HCPCS: 36415; 71045; 80048; 80053; 81001; 83605; 83690; 83735; 83880; 84100; 84145; 84484; 85025; 86140; 87040; 87086; 93005; 96361; 96365; 96367; 96375; 96376; 99285; A9270; C9113; G0378; J2020; J3370; J3490; J7040; J7050; U0002; 96360; 99291

== ENCOUNTER 2022-03-31 00:47 | Emergency (ER) | payer MEDICARE, BC ==
[2022-03-31] MEDS ORDERED: Pantoprazole 80 MG in Sodium Chloride 0.9% 10 ML IVPUSH ONE (01:04)
[2022-03-31] MEDS ORDERED: Ondansetron 4 MG/2 ML SDV IVPUSH ONE (01:04)
[2022-03-31] MEDS ORDERED: Lactated Ringers 1,000 ML IV STA (01:18)
[2022-03-31 02:03] LABS: CARBON DIOXIDE,CO2 27.3 mmol/L (21.0-32.0)
[2022-03-31] MEDS ORDERED: Phytonadione 10 MG in Sodium Chloride 0.9% 50 ML IV ONE (02:11)
[2022-03-31] MEDS ORDERED: Iopamidol 755 MG/ML 500 ML Multipack Bottle IVPUSH ONE (03:15)
[2022-03-31] MEDS ORDERED: metroNIDAZOLE/Normal Saline 500 MG in Premix Bag 1 BAG IV ONE (03:48)
[2022-03-31 06:36] VITALS: BP 102/58; PULSE 92
== END 2022-03-31 06:45 ==
LOC: MW.ED 00:47
DX: K92.2 Gastrointestinal hemorrhage, unspecified (principal); J96.01 Acute respiratory failure with hypoxia; D62 Acute posthemorrhagic anemia; I10 Essential (primary) hypertension; E66.9 Obesity, unspecified; Z68.36 Body mass index [BMI] 36.0-36.9, adult; Z88.5 Allergy status to narcotic agent; Z88.6 Allergy status to analgesic agent; Z88.8 Allergy status to other drugs, medicaments and biological substances; Z88.1 Allergy status to other antibiotic agents; Z88.0 Allergy status to penicillin; Z88.2 Allergy status to sulfonamides; Z91.048 Other nonmedicinal substance allergy status; Z79.899 Other long term (current) drug therapy; Z20.822 Contact with and (suspected) exposure to COVID-19
CPT/HCPCS: 36415; 36430; 71045; 74177; 80053; 83605; 85025; 85610; 85730; 86850; 86900; 86901; 86920; 87040; 96361; 96365; 96375; 99291; 99292; C9113; J2405; J3430; J3490; J7120; P9016; Q9967; U0002

== ENCOUNTER 2022-06-25 06:49 | Emergency (ER) | payer MEDICARE, BC ==
[2022-06-25 07:36] LABS: CARBON DIOXIDE,CO2 24.7 mmol/L (21.0-32.0); POTASSIUM,K 4.1 mmol/L (3.5-5.1)
[2022-06-25] MEDS ORDERED: Furosemide 40 MG/4 ML VIAL IVPUSH ONE ×3 (07:55→18:08)
[2022-06-25] MEDS ORDERED: Aspirin 81 MG Tab.Chew PO ONE (15:26)
[2022-06-25] MEDS ORDERED: LORazepam 2 MG/ML SDV IVPUSH ONE (17:51)
[2022-06-25] MEDS ORDERED: Furosemide 40 MG/4 ML VIAL ONE (18:07)
[2022-06-25] MEDS ORDERED: Nitroglycerin 2% Oint 1 GM UD Packet TOP ONE (18:08)
[2022-06-25] MEDS ORDERED: Nitroglycerin 2% Oint 1 GM UD Packet ONE (18:08)
[2022-06-25 18:15] VITALS: BP 148/88; PULSE 98
[2022-06-25] MEDS ORDERED: Clopidogrel 75 MG Tab PO ONE (18:21)
[2022-06-25] MEDS ORDERED: Heparin Sodium 5,000 Units/ML Vial IVPUSH ONE (18:22)
[2022-06-25] MEDS ORDERED: Heparin Sodium/0.45% NaCl 500 ML IV STA (18:23)
[2022-06-25 18:42] LABS: CARBON DIOXIDE,CO2 25.4 mmol/L (21.0-32.0); POTASSIUM,K 4.3 mmol/L (3.5-5.1)
== END 2022-06-25 19:01 ==
LOC: MW.ED 06:49
DX: I21.4 Non-ST elevation (NSTEMI) myocardial infarction (principal); I11.0 Hypertensive heart disease with heart failure; I50.9 Heart failure, unspecified; M10.9 Gout, unspecified; Z88.5 Allergy status to narcotic agent; Z88.4 Allergy status to anesthetic agent; Z88.0 Allergy status to penicillin; Z91.048 Other nonmedicinal substance allergy status; Z88.1 Allergy status to other antibiotic agents; Z79.899 Other long term (current) drug therapy; Z20.822 Contact with and (suspected) exposure to COVID-19
CPT/HCPCS: 36415; 71045; 80048; 80053; 81001; 83605; 83880; 84484; 84550; 85025; 85610; 85730; 93005; 93306; 96365; 96375; 96376; 99285; A9270; J1644; J1940; J2060; U0002; 93010